=== PATIENT | male | born 1955 | race Caucasian/White ===

== ENCOUNTER 2020-02-21 10:28 | Day surgery (SDC) | payer BC ==
[~2020-02-21] VITALS: Ht 193 cm; Wt 118.4 kg
[~2020-02-21 10:28] MED LIST: ALLO300 PO; ALPR.5 PO; ASCO500 PO; ASPI325 PO; CELE200 PO; EZET10 PO; EZET10-20 PO; FISH OIL 1,2001 EAC7 PO; OLME20 PO; VIT D PO; [UNRECOGNIZED DRUG - OTHER] PO; [UNRECOGNIZED DRUG - REMARK]
[2020-02-21] MEDS ORDERED: ASPI81CH (10:41)
== END 2020-02-21 11:58 | disposition home or self-care (01) ==
LOC: ORSCSDS 10:28
PROVIDERS: Internal Medicine Gastroenterology
PROC: 0DBH8ZX Excision of Cecum, Via Natural or Artificial Opening Endoscopic, Diagnostic (ICD-10-PCS; principal; 2020-02-21 11:45)
PROC: 0DBK8ZX Excision of Ascending Colon, Via Natural or Artificial Opening Endoscopic, Diagnostic (ICD-10-PCS; principal; 2020-02-21 11:45)
DX: Z12.11 Encounter for screening for malignant neoplasm of colon (principal); Z86.010 Personal history of colon polyps; D12.0 Benign neoplasm of cecum; D12.2 Benign neoplasm of ascending colon; K57.30 Diverticulosis of large intestine without perforation or abscess without bleeding; K64.8 Other hemorrhoids; G47.33 Obstructive sleep apnea (adult) (pediatric); I10 Essential (primary) hypertension; Z79.899 Other long term (current) drug therapy; Z79.82 Long term (current) use of aspirin
CPT/HCPCS: 88305; J2704; J7120

== ENCOUNTER 2021-11-24 17:38 | Inpatient (IN) | payer BC ==
[~2021-11-24] VITALS: Ht 193 cm; Wt 44.6 kg
[~2021-11-24 17:38] MED LIST changes: +ASPI81CH; +LIVALO PO; -[UNRECOGNIZED DRUG - OTHER] PO
[2021-11-24 18:24] LABS: BASOPHILS ABSOLUTE AUTO 0.03 K/mm3 (0.00-0.23); BASOPHILS PERCENT AUTO 0 % (0-2); EOSINOPHILS ABSOLUTE AUTO 0.11 K/mm3 (0.00-0.68); EOSINOPHILS PERCENT AUTO 1 % (0-6); Hematocrit 33.7 % (37.0-53.0); Hemoglobin 11.5 g/dL (13.5-17.5); IMMATURE GRAN ABSOLUTE AUTO 0.09 K/mm3 (0.00-0.10); IMMATURE GRAN PERCENT AUTO 1 % (0-1); LYMPHOCYTES ABSOLUTE AUTO 2.35 K/mm3 (0.84-5.20); LYMPHOCYTES PERCENT AUTO 23 % (21-46); MONOCYTES ABSOLUTE AUTO 0.98 K/mm3 (0.16-1.47); MONOCYTES PERCENT AUTO 10 % (4-13); Mean Corpuscular HGB Conc 34.1 g/dL (31.5-36.5); Mean Corpuscular Volume 94 fL (80-100); Mean Platelet Volume 11.3 fL (9.1-12.4); NEUTROPHILS ABSOLUTE AUTO 6.78 K/mm3 (1.96-9.15); NEUTROPHILS PERCENT AUTO 66 % (41-73); Platelet Count 270 K/mm3 (150-400); RDW Coefficient Variation 14.5 % (11.7-14.2); RDW Standard Deviation 50.1 fL (35.1-46.3); Red Blood Cell Count 3.59 M/mm3 (4.30-5.90); White Blood Cell Count 10.34 K/mm3 (4.00-11.30)
[2021-11-24 18:53] LABS: Magnesium, Blood 2.7 mg/dL (1.6-2.4)
[2021-11-24 18:56] LABS: Albumin, Blood 3.8 g/dL (3.4-5.0); Albumin/Globulin Ratio 1.3 (0.8-1.8); Bilirubin, Total 0.9 mg/dL (0.1-1.0); Bun/Creatinine Ratio 27.6 (12.0-20.0); Calcium, Blood 15.9 mg/dL (8.5-10.1); Creatinine, Blood 2.28 mg/dL (0.60-1.20); Globulin, Blood 2.9 g/dL (2.2-4.0); Potassium, Blood 4.7 mmol/L (3.5-5.5); Total Protein, Blood 6.7 g/dL (6.4-8.2)
[2021-11-24 19:15] LABS: Source, Urine Clean Catch
[2021-11-24 19:24] LABS: Appearance, Urine Clear (Clear); Bilirubin, Urine Neg (Neg); Blood, Urine 5+ (Neg); Color, Urine Yellow (P-Yellow); Glucose Qualitative, Urine Neg (Neg); Ketones, Urine Neg (Neg); Leukocyte Esterase, Urine Neg (Neg); Nitrite, Urine Neg (Neg); Protein, Urine 2+ (Neg); Urobilinogen, Urine NORM (Normal)
[2021-11-24 19:30] LABS: Hyaline Casts 0-2 /lpf (0-2)
[2021-11-24 19:31] LABS: Bacteria Few /hpf; Squamous Epithelial Cells Rare /hpf (Few); White Blood Cells, Urine 0-2 /hpf (0-5)
[2021-11-25] MEDS ORDERED: DUTA.5 PO (00:18)
[2021-11-25] MEDS ORDERED: Isosorbide Mono30 MG PO (00:18)
[2021-11-25 02:36] LABS: Hematocrit 29.3 % (37.0-53.0); Hemoglobin 10.1 g/dL (13.5-17.5)
[2021-11-25 02:59] LABS: Albumin, Blood 3.1 g/dL (3.4-5.0); Albumin/Globulin Ratio 1.3 (0.8-1.8); Bilirubin, Total 0.7 mg/dL (0.1-1.0); Bun/Creatinine Ratio 27.6 (12.0-20.0); Calcium, Blood 14.8 mg/dL (8.5-10.1); Creatinine, Blood 2.1 mg/dL (0.60-1.20); Globulin, Blood 2.3 g/dL (2.2-4.0); Potassium, Blood 4.4 mmol/L (3.5-5.5); Total Protein, Blood 5.4 g/dL (6.4-8.2)
--- NOTE | 2021-11-25 03:35 | NUR ---
TROPONIN 1614, CALCIUM 14.8. NOTIFIED, PER MD PT TO HAVE TWO MORE TROPONINS Q6H FROM LAST TROPONIN. PT DENIES CHEST PAIN. ON TELEMETRY ST HR 111 WITH FIRST DEGREE AV BLOCK. WILL CONTINUE TO MONITOR.
[2021-11-25 03:52] LABS: Percent Saturation 14.4 % (20.0-50.0); Thyroid Stimulating Hormone 1.04 uIU/mL (0.360-4.800)
[2021-11-25 05:19] LABS: BASOPHILS ABSOLUTE AUTO 0.04 K/mm3 (0.00-0.23); BASOPHILS PERCENT AUTO 1 % (0-2); EOSINOPHILS PERCENT AUTO 1 % (0-6); Hematocrit 30.3 % (37.0-53.0); Hemoglobin 10.1 g/dL (13.5-17.5); IMMATURE GRAN ABSOLUTE AUTO 0.04 K/mm3 (0.00-0.10); IMMATURE GRAN PERCENT AUTO 1 % (0-1); LYMPHOCYTES ABSOLUTE AUTO 1.43 K/mm3 (0.84-5.20); LYMPHOCYTES PERCENT AUTO 17 % (21-46); MONOCYTES PERCENT AUTO 12 % (4-13); Mean Corpuscular HGB 31.8 pg (26.0-34.0); Mean Corpuscular HGB Conc 33.3 g/dL (31.5-36.5); Mean Corpuscular Volume 95 fL (80-100); Mean Platelet Volume 10.8 fL (9.1-12.4); NEUTROPHILS ABSOLUTE AUTO 5.99 K/mm3 (1.96-9.15); NEUTROPHILS PERCENT AUTO 70 % (41-73); Platelet Count 215 K/mm3 (150-400); RDW Coefficient Variation 14.6 % (11.7-14.2); RDW Standard Deviation 49.7 fL (35.1-46.3); Red Blood Cell Count 3.18 M/mm3 (4.30-5.90)
--- NOTE | 2021-11-25 05:36 | NUR ---
PT A/0X4 VERY PLEASANT AND ISAMAR TO MAKE NEEDS KNOWN. PT STEADY ON FEET AND INDEPENDENT IN ROOM. PT W/O NEW COMPLAINS T/O SHIFT. MEDICATED PER JUN. URINE COLLECTED THIS MORNING AND SENT PER ORDERS. PT ON TELEMETRY ST AVB PT DENIES CHEST PAIN AT THIS TIME. NS INFUSING AT 125 ML/HR.
[2021-11-25 05:59] LABS: Creatinine, Urine Random 29.4 mg/dL (27.00-270.00)
[2021-11-25 06:17] LABS: Eosinophils-Raw #,Urine 0
[2021-11-25 06:19] LABS: White Blood Cells Urine 0-2 /hpf (0-5)
[2021-11-25] MEDS ORDERED: Voltaren100 GM TOP ×2 (12:52→12:55)
--- NOTE | 2021-11-25 18:05 | NUR ---
SUMMARY- PT CONTINUES TO HAVE GEN FATIGUE. TOLERATING SMALL AMOUNTS OF EACH MEAL BUT STATES FOOD TASTES TERRIBLE AND HE HAS NO APPETITE. TOLERATING CLEARS AND HAS IVF NS RUNNING. PT HAD RENAL U.S. TODAY. HAD CHEST/ABD CT. DR WILLOUGHBY CONSULTED. PLAN FOR BOWEL PREP STARTING 0700 11/26 FOR COLONOSCOPY. PT IS ON CLEAR DIET. PAIN FROM ARTHRITIS/BURSITIS CONTROLLED WITH ONE VICODIN. PT DECLINES TO TAKE PM LOSARTIN, EQUIVELANT OF HIS HOME BENICAR BECAUSE THEY DON'T FEEL COMFORATBLE WITH THAT MED. PT GETS UP TO CHAIR THROUOUT THE DAY. FAMILY IN ROOM MOST OF THE DAY. VERY ATTENTIVE TO THE PATIENE. WILL REPORT TO NIGHT RN.
--- NOTE | 2021-11-26 04:47 | NUR ---
SHIFT SUMMARY ADMITTED FOR HYPERCALCEMIA. FULL CODE. TELEMETRY: 1ST DEG BLOCK, TACHY @ 107 BPM. XANAX GIVEN. NS INFUSING ORDERED. CLEAR LIQUID DIET. PLAN FOR UPPER AND LOWER SCOPE TODAY. WILL BEGIN GOLYTELY REGIMEN THIS AM ORDERED. HE IS A&O X4, COOPERATIVE WITH CARE. DR LEWIS IS GI CONSULT.
[2021-11-26 07:48] LABS: Hematocrit 31.6 % (37.0-53.0); Hemoglobin 10.7 g/dL (13.5-17.5)
[2021-11-26 08:13] LABS: Bun/Creatinine Ratio 23.7 (12.0-20.0); Creatinine, Blood 1.56 mg/dL (0.60-1.20); Potassium, Blood 4.5 mmol/L (3.5-5.5)
[2021-11-26 08:14] LABS: Calcium, Blood 12.4 mg/dL (8.5-10.1)
--- NOTE | 2021-11-26 16:17 | NUR ---
THE PATIENT WAS BROUGHT TO DAY SURGERY FOR HIS PROCEDURE
--- NOTE | 2021-11-26 16:56 | NUR ---
11/26/21 1656 Karl Price HISTORY, CHART, MEDICATIONS AND ALLERGIES REVIEWED BEFORE START OF PROCEDURE. PATIENT CONFIRMS NPO STATUS AND AGREES WITH SCHEDULED PROCEDURE. 3-LEAD EKG REVIEWED WITH PHYSICIAN PRIOR TO START OF PROCEDURE. MONITOR INTACT WITH CONTINUOUS PULSE OXIMETRY,CAPNOGRAPHY, 3-LEAD EKG, INTERMITTENT BP. SUPPLEMENTAL O2 TO BE TITRATED THROUGHOUT PROCEDURE TO MAINTAIN O2 SATURATION ABOVE 90%. PATIENT DETERMINED TO BE ASA APPROPRIATE FOR PROPOFOL SEDATION PRIOR TO START OF PROCEDURE BY DR. LEWIS.
--- NOTE | 2021-11-26 20:21 | NUR ---
1600- PT OFF TO ENDO/COLONOSCOPY PROCEDURE WITH EDIN PATEL. SL. PT'S STOOL RUNNING CLEAR WITH MANE SEDIMENT.
--- NOTE | 2021-11-26 20:21 | NUR ---
0- RETURNED FROM ENDO, AWAKE AND ALERT. TOLERATING SIPS OF CLEARS. STARTED TELE AND IVF BACK. DR WILLOUGHBY CAME TO BEDSIDE AND DISCUSSED POSSIBILITY OF BEING ABLE TO DO COLONOSCOPY, PREP WAS NOT COMPLETE AND UNABLE TO PERFORM TODAY. PENDING DRAGLINE OPERATOR AVAIL FOR PROCEDURE TOMORROW.
--- NOTE | 2021-11-26 20:23 | NUR ---
SUMM- PT TOLERATING CLEARS TODAY. PREPPED FOR ENDO/COLONOSCOPY. UNABLE TO DO COLON BOWEL PREP INCOMPLETE. MAY PERFORM TOMORROW. PT'S SHOULDER ARTHRITIS PAIN CONTROLLED WITH VICODIN 1 APPPROX Q4-6. AND DAUGHTER VERY INVOLVED IN CARE AND VERY FRUSTRATED TO NOT HAVE ANY ANSWERS TO WHY PT LOSING WEIGHT AND DELCLINING. REPORT TO MAGDI JESUS.
--- NOTE | 2021-11-27 04:16 | NUR ---
SHIFT SUMMARY ADMITTED FOR HYPERCALCEMIA. FULL CODE. DR. LEWIS IS GI CONSULT. DR. RAGSDALE IS CARDIOLOGY CONSULT. HOPEFUL FOR COLONOSCOPY WHEN STAFFING PERMITS. TELEMETRY SHOWS TACHYCARDIA INCREASING WITH AMBULATION. 1ST DEG AV BLOCK @ 108 BPM ON AVERAGE. XANAX PRN GIVEN THIS SHIFT. PT IS ON RA, A&O X4. FULL LIQUID DIET UNTIL BREAKFAST THIS MORNING, THEN CLEAR LIQUID DIET.
[2021-11-27 09:19] LABS: Albumin, Blood 3.1 g/dL (3.4-5.0); Anion Gap 10 mmol/L (6-16); Blood Urea Nitrogen 26 mg/dL (8-24); Bun/Creatinine Ratio 19.4 (12.0-20.0); CO2, Blood 20 mmol/L (21-32); Calcium, Blood 11.5 mg/dL (8.5-10.1); Chloride, Blood 109 mmol/L (98-108); Creatinine, Blood 1.34 mg/dL (0.60-1.20); Glomerular Filtration Rate 58 (60-); Glucose, Blood 111 mg/dL (70-99); Phosphorus, Blood 1.9 mg/dL (2.5-4.9); Sodium, Blood 139 mmol/L (136-145)
[2021-11-27 15:07] LABS: A/G RATIO 1.7 (0.7-1.7); ALPHA-1-GLOBULIN 0.2 g/dL (0.0-0.4); ALPHA-2-GLOBULIN 0.7 g/dL (0.4-1.0); BETA GLOBULIN 0.7 g/dL (0.7-1.3); GAMMA GLOBULIN 0.3 g/dL (0.4-1.8); GLOBULIN, TOTAL 1.8 g/dL (2.2-3.9); M-SPIKE Not Observed g/dL (Not Observed); PROTEIN, TOTAL, SERUM 4.8 g/dL (6.0-8.5)
--- NOTE | 2021-11-28 04:43 | NUR ---
SHIFT SUMMARY 66 YR M ADMITTED ON 11/24/21 FOR HYPERCALCEMIA. FULL CODE. NO ACUTE CHANGES THIS SHIFT. PT HAS BEEN ON CLEAR LIQUIDS AND IS SCHEDULED FOR A COLONOSCOPY TODAY AT APPROX 1500. NO PRN MEDS REQUESTED FOR THIS SHIFT.
[2021-11-28 05:27] LABS: BASOPHILS ABSOLUTE AUTO 0.01 K/mm3 (0.00-0.23); BASOPHILS PERCENT AUTO 0 % (0-2); EOSINOPHILS ABSOLUTE AUTO 0.16 K/mm3 (0.00-0.68); EOSINOPHILS PERCENT AUTO 2 % (0-6); Hematocrit 27.5 % (37.0-53.0); Hemoglobin 9.4 g/dL (13.5-17.5); IMMATURE GRAN ABSOLUTE AUTO 0.04 K/mm3 (0.00-0.10); IMMATURE GRAN PERCENT AUTO 1 % (0-1); LYMPHOCYTES ABSOLUTE AUTO 1.49 K/mm3 (0.84-5.20); LYMPHOCYTES PERCENT AUTO 19 % (21-46); MONOCYTES ABSOLUTE AUTO 0.76 K/mm3 (0.16-1.47); MONOCYTES PERCENT AUTO 10 % (4-13); Mean Corpuscular HGB 32.4 pg (26.0-34.0); Mean Corpuscular HGB Conc 34.2 g/dL (31.5-36.5); Mean Corpuscular Volume 95 fL (80-100); Mean Platelet Volume 10.9 fL (9.1-12.4); NEUTROPHILS ABSOLUTE AUTO 5.42 K/mm3 (1.96-9.15); NEUTROPHILS PERCENT AUTO 69 % (41-73); Platelet Count 189 K/mm3 (150-400); RDW Coefficient Variation 15.1 % (11.7-14.2); RDW Standard Deviation 52.5 fL (35.1-46.3); White Blood Cell Count 7.88 K/mm3 (4.00-11.30)
[2021-11-28 06:02] LABS: Albumin, Blood 2.7 g/dL (3.4-5.0); Anion Gap 9 mmol/L (6-16); Blood Urea Nitrogen 20 mg/dL (8-24); Bun/Creatinine Ratio 16.7 (12.0-20.0); CO2, Blood 18 mmol/L (21-32); Calcium, Blood 10.7 mg/dL (8.5-10.1); Chloride, Blood 112 mmol/L (98-108); Glomerular Filtration Rate 66 (60-); Glucose, Blood 98 mg/dL (70-99); Magnesium, Blood 1.8 mg/dL (1.6-2.4); Phosphorus, Blood 1.7 mg/dL (2.5-4.9); Potassium, Blood 3.4 mmol/L (3.5-5.5); Sodium, Blood 139 mmol/L (136-145)
--- NOTE | 2021-11-28 14:09 | NUR ---
11/28/21 1409 Nadja Alas HISTORY, CHART, MEDICATIONS AND ALLERGIES REVIEWED BEFORE START OF PROCEDURE. PATIENT CONFIRMS NPO STATUS AND AGREES WITH SCHEDULED PROCEDURE. 3-LEAD EKG REVIEWED WITH PHYSICIAN PRIOR TO START OF PROCEDURE. MONITOR INTACT WITH CONTINUOUS PULSE OXIMETRY,CAPNOGRAPHY, 3-LEAD EKG, INTERMITTENT BP. SUPPLEMENTAL O2 TO BE TITRATED THROUGHOUT PROCEDURE TO MAINTAIN O2 SATURATION ABOVE 90%. PATIENT DETERMINED TO BE ASA APPROPRIATE FOR PROPOFOL SEDATION PRIOR TO START OF PROCEDURE BY DR. LEWIS
--- NOTE | 2021-11-28 17:38 | NUR ---
AOX4, INDEPENDENT, CAN MAKE NEEDS KNOWN, COOPERATIVE WITH MEDICATIONS AND CARE. PT WAS ON CLEAR LIQUID DIET AND COLONOSCOPY TODAY; PT NOW ON CARDIAC DIET AND TOLERATING IT WELL. PRN PAIN MED GIVEN AFTER PROCEDURE FOR SHOULDER PAIN 5/10, GOOD RELIEF WITH DOSE. PT'S HAS BEEN AT BESIDE MOST OF THE SHIFT. NO ACUTE CHANGES. CALL-LIGHT WITHIN REACH; BED IN LOWEST POSITION.
[2021-11-29 08:26] LABS: Albumin, Blood 2.9 g/dL (3.4-5.0); Anion Gap 10 mmol/L (6-16); Blood Urea Nitrogen 16 mg/dL (8-24); Bun/Creatinine Ratio 13.8 (12.0-20.0); CO2, Blood 18 mmol/L (21-32); Calcium, Blood 10.2 mg/dL (8.5-10.1); Chloride, Blood 113 mmol/L (98-108); Creatinine, Blood 1.16 mg/dL (0.60-1.20); Glomerular Filtration Rate 69 (60-); Glucose, Blood 92 mg/dL (70-99); Phosphorus, Blood 1.6 mg/dL (2.5-4.9); Potassium, Blood 3.6 mmol/L (3.5-5.5); Sodium, Blood 141 mmol/L (136-145)
[2021-11-29] MEDS ORDERED: DOCUZEN 8.6-501 EACH PO (13:32)
== END 2021-11-29 14:12 | disposition home or self-care (01) | DRG 683 ==
LOC: ER 17:38 → MEDS 23:10
PROVIDERS: Family Medicine; Internal Medicine; Internal Medicine Gastroenterology; Physician Assistant; ADMIT Internal Medicine
PROC: 0DB68ZX Excision of Stomach, Via Natural or Artificial Opening Endoscopic, Diagnostic (ICD-10-PCS; 2021-11-26)
PROC: 0DBM8ZZ Excision of Descending Colon, Via Natural or Artificial Opening Endoscopic (ICD-10-PCS; 2021-11-26)
PROC: 0DBM8ZX Excision of Descending Colon, Via Natural or Artificial Opening Endoscopic, Diagnostic (ICD-10-PCS; principal; 2021-11-26 14:00)
PROC: 0DB98ZX Excision of Duodenum, Via Natural or Artificial Opening Endoscopic, Diagnostic (ICD-10-PCS; 2021-11-26 14:00)
DX: N17.9 Acute kidney failure, unspecified (principal); E87.1 Hypo-osmolality and hyponatremia; E83.52 Hypercalcemia; I10 Essential (primary) hypertension; E78.00 Pure hypercholesterolemia, unspecified; I48.91 Unspecified atrial fibrillation; G47.33 Obstructive sleep apnea (adult) (pediatric); E78.5 Hyperlipidemia, unspecified; R01.1 Cardiac murmur, unspecified; R63.4 Abnormal weight loss; I35.1 Nonrheumatic aortic (valve) insufficiency; I25.10 Atherosclerotic heart disease of native coronary artery without angina pectoris; D64.9 Anemia, unspecified; E83.41 Hypermagnesemia; R31.9 Hematuria, unspecified; T45.2X5A Adverse effect of vitamins, initial encounter; R79.89 Other specified abnormal findings of blood chemistry; M10.9 Gout, unspecified; Z99.89 Dependence on other enabling machines and devices; Z86.16 Personal history of COVID-19; Z86.010 Personal history of colon polyps; Z98.890 Other specified postprocedural states; Z87.19 Personal history of other diseases of the digestive system; Z88.0 Allergy status to penicillin; Z79.82 Long term (current) use of aspirin; Z79.899 Other long term (current) drug therapy
CPT/HCPCS: 36415; 71250; 74176; 76770; 80048; 80053; 80069; 81001; 82310; 82330; 82397; 82570; 82607; 82728; 82746; 83540; 83550; 83605; 83735; 83880; 83970; 84165; 84300; 84443; 84484; 84540; 84590; 85014; 85018; 85025; 87205; 88305; 88342; 93005; 93010; 93306; 99285-25; A9270; J0630; J1650; J2405; J2704; J3489; J7030; J7060; J7120

== ENCOUNTER 2022-01-07 17:06 | Inpatient (IN) | payer BC ==
[~2022-01-07] VITALS: Ht 193 cm; Wt 86.2 kg
[~2022-01-07 17:06] MED LIST changes: +DOCUZEN 8.6-501 EACH PO; +DUTA.5 PO; +Isosorbide Mono30 MG PO; +Voltaren100 GM TOP
[2022-01-07 18:28] LABS: BASOPHILS ABSOLUTE AUTO 0.03 K/mm3 (0.00-0.23); BASOPHILS PERCENT AUTO 0 % (0-2); EOSINOPHILS ABSOLUTE AUTO 0.08 K/mm3 (0.00-0.68); EOSINOPHILS PERCENT AUTO 1 % (0-6); Hematocrit 28.5 % (37.0-53.0); Hemoglobin 9.5 g/dL (13.5-17.5); IMMATURE GRAN ABSOLUTE AUTO 0.11 K/mm3 (0.00-0.10); IMMATURE GRAN PERCENT AUTO 1 % (0-1); LYMPHOCYTES ABSOLUTE AUTO 1.56 K/mm3 (0.84-5.20); LYMPHOCYTES PERCENT AUTO 14 % (21-46); MONOCYTES ABSOLUTE AUTO 1.12 K/mm3 (0.16-1.47); MONOCYTES PERCENT AUTO 10 % (4-13); Mean Corpuscular HGB 32.4 pg (26.0-34.0); Mean Corpuscular HGB Conc 33.3 g/dL (31.5-36.5); Mean Corpuscular Volume 97 fL (80-100); Mean Platelet Volume 11.3 fL (9.1-12.4); NEUTROPHILS ABSOLUTE AUTO 8.04 K/mm3 (1.96-9.15); NEUTROPHILS PERCENT AUTO 74 % (41-73); Platelet Count 275 K/mm3 (150-400); RDW Coefficient Variation 15.3 % (11.7-14.2); RDW Standard Deviation 53.7 fL (35.1-46.3); Red Blood Cell Count 2.93 M/mm3 (4.30-5.90); White Blood Cell Count 10.94 K/mm3 (4.00-11.30)
[2022-01-07 18:48] LABS: Magnesium, Blood 2.8 mg/dL (1.6-2.4)
[2022-01-07 19:01] LABS: Alanine Aminotransfer (ALT/SGP 21 U/L (12-78); Albumin/Globulin Ratio 1.2 (0.8-1.8); Alk Phos 110 U/L (50-136); Anion Gap 7 mmol/L (6-16); Aspartate Aminotrans (AST/SGOT 64 U/L (12-37); Bilirubin, Total 0.7 mg/dL (0.1-1.0); Blood Urea Nitrogen 55 mg/dL (8-24); Bun/Creatinine Ratio 21.2 (12.0-20.0); CO2, Blood 24 mmol/L (21-32); Calcium, Blood 15.7 mg/dL (8.5-10.1); Chloride, Blood 104 mmol/L (98-108); Globulin, Blood 2.6 g/dL (2.2-4.0); Glomerular Filtration Rate 26 (60-); Glucose, Blood 142 mg/dL (70-99); Phosphorus, Blood 3.2 mg/dL (2.5-4.9); Potassium, Blood 4.7 mmol/L (3.5-5.5); Sodium, Blood 135 mmol/L (136-145); Total Protein, Blood 5.6 g/dL (6.4-8.2)
[2022-01-07 21:32] LABS: CPK Creatine Kinase 310 U/L (39-308); Prostate Specific Antigen 0.774 ng/mL (0.000-4.000)
[2022-01-07 22:09] LABS: Creatine Kinase MB 4.3 ng/mL (0.0-3.6); Creatine Kinase MB Index 1.4 (0.0-4.0)
--- NOTE | 2022-01-07 22:48 | NUR ---
PT ARRIVED TO MEDICAL FLOOR BY AT 2240. [id number] TO BED.
--- NOTE | 2022-01-08 04:21 | NUR ---
A&Ox4. PLEASANT AND COOPERATIVE WITH PAIN. VSS. TELE @ 2321: SINUS TAC @ 112bpm & 1ST-DEGREE HEART BLOCK. SBA FOR AMBULATION D/T WEAK GAIT. MEICATED x1 D/T GENERALIZED BONE PAIN SECONDARY TO HYPERCALCEMIA. CONSULT WITH DR SAAVEDRA THIS AM. , ALEJA, VERY INVOLVED IN CARE AND HAS BEEN INFORMED WHEN DR SAAVEDRA WILL ROUND. PT BM THIS EVENING. NS 200ml/hr RUNNING RT AC. PERSONAL CPAP @ BEDSIDE & CONTINUOUS BI-0x PER RT. WILL REPORT TO ONCOMING RN.
[2022-01-08 06:01] LABS: Hemoglobin 8.8 g/dL (13.5-17.5); Mean Corpuscular HGB Conc 32.6 g/dL (31.5-36.5); Mean Corpuscular Volume 98 fL (80-100); Mean Platelet Volume 11.8 fL (9.1-12.4); Platelet Count 251 K/mm3 (150-400); RDW Coefficient Variation 15.1 % (11.7-14.2); RDW Standard Deviation 53.9 fL (35.1-46.3); Red Blood Cell Count 2.75 M/mm3 (4.30-5.90); White Blood Cell Count 11.78 K/mm3 (4.00-11.30)
[2022-01-08 06:18] LABS: Magnesium, Blood 2.3 mg/dL (1.6-2.4)
[2022-01-08 06:32] LABS: Albumin, Blood 2.8 g/dL (3.4-5.0); Albumin/Globulin Ratio 1.2 (0.8-1.8); Bilirubin, Total 0.8 mg/dL (0.1-1.0); Bun/Creatinine Ratio 21.5 (12.0-20.0); Calcium, Blood 14.8 mg/dL (8.5-10.1); Creatinine, Blood 2.42 mg/dL (0.60-1.20); Globulin, Blood 2.4 g/dL (2.2-4.0); Potassium, Blood 4.6 mmol/L (3.5-5.5); Total Protein, Blood 5.2 g/dL (6.4-8.2)
--- NOTE | 2022-01-08 19:52 | NUR ---
SHIFT SUMMARY MR CRUZ IS ALERT, ORIENTATED X4. VERY SUPPORTIVE AND DAUGHTER AT BEDSIDE FOR MOST OF THE DAY TODAY. PT C/O JOINT ACHES TWICE THIS SHIFT WHICH OXY HELPED. RANDOM URINE SPEC SENT THIS AM AND 24 HOUR URINE STATED AT 1030AM. IV LASIX GIVEN THIS AM WITH GOOD UOP. NUCLEAR MED PARATHYROID EXAM COMPLETED TODAY. BLADDER SCAN DONE AT 136CC. PULSE OX IN THE 90S ON CONTINUOUS PULSE OX ON ROOM AIR. PT DID AMBULATE IN TO THE BATHROOM, STANDBY ASSISTANCE, HE IS WEAK AND USES THE RAILINGS TO HOLD ON TO. TELE SR WITH BBB, NO CALLS FROM [employer] TODAY. IVF CONTINUE, WERE REDUCED TO 100CC/HR. PT AND FAMILY REFUSED ARANESP THIS EVENING AFTER CONCERNS WHEN READING INFORMATION SHEET THAT ACCOMPNIES MEDICATION. DR LAGUERRE INFORMED THAT ARANESP WAS NOT GIVEN. DR SAAVEDRA CALLED THIS EVENING AND SAID THAT HE IS WAITING ON LAB RESULTS BEFORE COMING IN TO SEE MR CRUZ. FAMILY AND PT WERE NOTIFIED OF THIS. STRESSED TO DR SAAVEDRA THAT FAMILY DO WANT TO TALK TO HIM WHEN HE COMES TO SEE MR CRUZ. BED LOW, CALL LIGHT IN REACH.
[2022-01-09 05:22] LABS: BASOPHILS ABSOLUTE AUTO 0.03 K/mm3 (0.00-0.23); BASOPHILS PERCENT AUTO 0 % (0-2); EOSINOPHILS PERCENT AUTO 0 % (0-6); Hematocrit 27.1 % (37.0-53.0); Hemoglobin 8.9 g/dL (13.5-17.5); IMMATURE GRAN ABSOLUTE AUTO 0.19 K/mm3 (0.00-0.10); IMMATURE GRAN PERCENT AUTO 1 % (0-1); LYMPHOCYTES ABSOLUTE AUTO 2.19 K/mm3 (0.84-5.20); LYMPHOCYTES PERCENT AUTO 11 % (21-46); MONOCYTES ABSOLUTE AUTO 1.58 K/mm3 (0.16-1.47); MONOCYTES PERCENT AUTO 8 % (4-13); Mean Corpuscular HGB 31.8 pg (26.0-34.0); Mean Corpuscular HGB Conc 32.8 g/dL (31.5-36.5); Mean Corpuscular Volume 97 fL (80-100); Mean Platelet Volume 11.1 fL (9.1-12.4); NEUTROPHILS ABSOLUTE AUTO 16.93 K/mm3 (1.96-9.15); NEUTROPHILS PERCENT AUTO 81 % (41-73); Platelet Count 299 K/mm3 (150-400); RDW Coefficient Variation 15.1 % (11.7-14.2); RDW Standard Deviation 53.5 fL (35.1-46.3); White Blood Cell Count 20.92 K/mm3 (4.00-11.30)
[2022-01-09 05:55] LABS: Magnesium, Blood 2.2 mg/dL (1.6-2.4)
--- NOTE | 2022-01-09 05:57 | NUR ---
PATIENT PLEASANT AND COOROPERATIVE, PATIENT INCREASINGLY CONFUSED OVERNIGHT, PLACED ON BED ALARM, CONTINUING 24 HOUR URINE COLLECTION UNTIL 1030, PRN MEDICATION FOR PAIN, IVF RUNNING ORDERED TO IV IN RAC, IS POSITIONAL, PATIENT ON TELE WITH SINUS TACH
[2022-01-09 06:00] LABS: Albumin, Blood 3.1 g/dL (3.4-5.0); Anion Gap 10 mmol/L (6-16); Blood Urea Nitrogen 52 mg/dL (8-24); Bun/Creatinine Ratio 23.9 (12.0-20.0); CO2, Blood 21 mmol/L (21-32); Calcium, Blood 13.3 mg/dL (8.5-10.1); Chloride, Blood 106 mmol/L (98-108); Creatinine, Blood 2.18 mg/dL (0.60-1.20); Glomerular Filtration Rate 32 (60-); Glucose, Blood 120 mg/dL (70-99); Phosphorus, Blood 3.1 mg/dL (2.5-4.9); Potassium, Blood 4.1 mmol/L (3.5-5.5); Sodium, Blood 137 mmol/L (136-145)
--- NOTE | 2022-01-09 10:31 | NUR ---
RN NOTE MR CRUZ HAS BEEN ORIENTATED TO QUESTIONS THIS MORNING. HE WAS A LITTLE VAGUE AT FIRST ABOUT SOME OF HIS ANSWERS, BUT SOON BECAME CLEAR AND SURE OF HIS ANSWERS. HE IS [place] AND SAID SOMETIMES HE GETS CONFUSED WHEN HE CAN'T HEAR WELL. PERRL, NO FACIAL DROOP, NO ARM DROOP, EQUAL HORIZONTAL DRILL OPERATOR. TACHYCARDIA ON MONITOR THIS MORNING. SEEN BY DR ECHEVERRIA. IVF DECREASED TO 75CC/HR, IV LASIX 40MG AND NEW PARAMTER [facility] VERBAL ORDERS FROM DR ECHEVERRIA. DR ECHEVERRIA IS AWARE THAT PT WAS CONFUSED OVERNIGHT, THAT PT AND FAMILY HAVE CONCERNS ABOUT ARANASP, AND SAID HE IS HAPPY TO DISCUSS THEIR CONCERNS WITH THEM. 24 HOUR URINE COLLECTION COMPLETED AT 1030. PT RESTING THIS MORNING WITH CPAP ON. CONTINUOUS PULSE OX ON, SATS IN THE 90S.
[2022-01-09 12:03] LABS: Protein, Urine Quantitative 52.5 mg/dL (0.0-11.9)
--- NOTE | 2022-01-09 12:37 | NUR ---
RN NOTE PAMELA, PT'S AT BEDSIDE. DR LAGUERRE DISCUSSED PLAN OF CARE WITH PT AND HIS . [facility] ORDER FROM DR LAGUERRE. WHEN I TOLD PAMELA THAT MR CRUZ WAS CONFUSED AT TIMES OVERNIGHT SHE SAID THAT HER HAS BEEN A LITTLE VAGUE AND CONFUSED AT HOME ON AND OFF RECENTLY, SO IT DIDN'T SOUND UNUSUAL TO HER.
--- NOTE | 2022-01-09 15:52 | NUR ---
RN NOTE CALL FROM TELE, PT HR UP TO HIGH 140S. PT GETTING UP OUT OF BED, AWOKE FROM A SOUND SLEEP AND NEEDED TO URINATE URGENTLY. ASSISTED WITH STANDING AND URINATING, HR DOWN TO THE ONE-TEENS WHEN RESTING BACK IN BED. NO CHEST PAIN, DENIES ANY PAIN AT ALL AT THIS POINT. BED ALARM ON, CALL LIGHT IN REACH.
--- NOTE | 2022-01-09 19:38 | NUR ---
MARCI SUMMARY PLS SEE PRIOR NOTES. MR ANTHONY HAS DENIED PAIN TODAY. TELE ST AROUND 106 AT REST, INCREASED UP TO 140S WITH EXERTION EARLIER, BACK DOEN AFTER HE SETTLED BACK INTO BED. IVF CONTINUE AT 75CC/HR. CPAP USED FOR NAPS. CONT PULSE OX IN THE 90S ON ROOM AIR. [place], ORIENTATED WHEN AWAKE, BUT FORGETFUL WHEN HE AWOKE FORM A DEEP SLEEP, GETTING OUT OF BED BY HIMSELF. BED ALARM ON FOR PT SAFETY AND EXPLAINED TO PT AND PAMELA. 24 HR URINE COMPLETED 1030HRS, BED LOW, CALL LIGHT IN REACH.
[2022-01-10 05:07] LABS: BASOPHILS ABSOLUTE AUTO 0.01 K/mm3 (0.00-0.23); BASOPHILS PERCENT AUTO 0 % (0-2); EOSINOPHILS PERCENT AUTO 0 % (0-6); Hematocrit 26.4 % (37.0-53.0); Hemoglobin 8.5 g/dL (13.5-17.5); IMMATURE GRAN ABSOLUTE AUTO 0.07 K/mm3 (0.00-0.10); IMMATURE GRAN PERCENT AUTO 0 % (0-1); LYMPHOCYTES ABSOLUTE AUTO 1.77 K/mm3 (0.84-5.20); LYMPHOCYTES PERCENT AUTO 11 % (21-46); MONOCYTES ABSOLUTE AUTO 1.22 K/mm3 (0.16-1.47); MONOCYTES PERCENT AUTO 8 % (4-13); Mean Corpuscular HGB 31.8 pg (26.0-34.0); Mean Corpuscular HGB Conc 32.2 g/dL (31.5-36.5); Mean Corpuscular Volume 99 fL (80-100); Mean Platelet Volume 11.2 fL (9.1-12.4); NEUTROPHILS ABSOLUTE AUTO 12.68 K/mm3 (1.96-9.15); NEUTROPHILS PERCENT AUTO 81 % (41-73); Platelet Count 237 K/mm3 (150-400); RDW Coefficient Variation 15.5 % (11.7-14.2); RDW Standard Deviation 55.7 fL (35.1-46.3); Red Blood Cell Count 2.67 M/mm3 (4.30-5.90); White Blood Cell Count 15.75 K/mm3 (4.00-11.30)
--- NOTE | 2022-01-10 05:50 | NUR ---
CLINICAL NURSING DIRECTOR SUMMARY PT RESTING ON CPAP THROUGHOUT THE NIGHT. PT SLIGHTLY UNSTEADY WHEN STANDING AT BS TO USE THE URINAL. ALERT AND ORIENTED BUT WAKES UP SLIGHTLY CONFUSED ABOUT THE SITUATION, EASILY REORIENTED. NO ACUTE EVENTS THIS SHIFT.
[2022-01-10 05:54] LABS: Albumin, Blood 2.8 g/dL (3.4-5.0); Anion Gap 10 mmol/L (6-16); Blood Urea Nitrogen 53 mg/dL (8-24); Bun/Creatinine Ratio 27.9 (12.0-20.0); CO2, Blood 19 mmol/L (21-32); Calcium, Blood 11.8 mg/dL (8.5-10.1); Chloride, Blood 109 mmol/L (98-108); Glomerular Filtration Rate 38 (60-); Glucose, Blood 97 mg/dL (70-99); Magnesium, Blood 2.1 mg/dL (1.6-2.4); Phosphorus, Blood 2.8 mg/dL (2.5-4.9); Potassium, Blood 3.6 mmol/L (3.5-5.5); Sodium, Blood 138 mmol/L (136-145)
--- NOTE | 2022-01-10 10:34 | NUR ---
RN NOTE DR ECHEVERRIA WAS IN PT ROOM THIS AM. GAVE ME VERBAL ORDER FOR 40MG LASIX IV X1 AND DECREASE IVF TO 50CC/HR. READ BACK DONE AND [facility] PLAN FOR DISCHARGE HOME TODAY. I CALLED DR ECHEVERRIA AND HE ORDERED POTASSIUM 10mEq QOD AND LASIX 40MG QOD FOR DISCHARGE. READ BACK DONE AND THESE WERE RELATED TO DR BARCENAS TO PUT ON DISCHARGE PAPERWORK. PT ALERT, OX4 TODAY, SEEMS CLEARER IN HIS SPEACH AND MANOR THIS MORNING. NO C/O PAIN. BED LOW, CALL LIGHT IN REACH. BED ALARM ON.
[2022-01-10] MEDS ORDERED: CINA30 PO (10:51)
[2022-01-10] MEDS ORDERED: SODBIC650 PO (10:51)
[2022-01-10] MEDS ORDERED: FURO40 PO (10:52)
[2022-01-10] MEDS ORDERED: POTA10T PO (10:52)
--- NOTE | 2022-01-10 12:31 | NUR ---
DISCHARGE NOTE DISCHARGED HOME WITH HIS VIA WHEELCHAIR AT 12 NOON. PIV X 2 REMOVED. TELE REMOVED. PT AND Jimmie VERBALISED UNDERTANDING OF DISCHARGE INSTRUCTIONS AND ALL QUESTIONS ANSWERED. WRITTEN AND VERBAL DC INSTRUCTIONS GIVEN.
[2022-01-11 15:08] LABS: IMMUNOFIXATION RESULT, SERUM Comment: (.); IMMUNOGLOBULIN A, QN, SERUM 15 mg/dL (61-437); IMMUNOGLOBULIN G, QN, SERUM 266 mg/dL (603-1613); IMMUNOGLOBULIN M, QN, SERUM <5 mg/dL (20-172)
[2022-01-13 13:08] LABS: ANTIMYELOPEROXIDASE (MPO) ABS <0.2 units (0.0-0.9); ANTIPROTEINASE 3 (PR-3) ABS <0.2 units (0.0-0.9); ATYPICAL PANCA <1:20 titer (Neg:<1:20); CYTOPLASMIC (C-ANCA) <1:20 titer (Neg:<1:20); PERINUCLEAR (P-ANCA) <1:20 titer (Neg:<1:20)
[2022-01-14 12:10] LABS: M-SPIKE, % Comment: % (Not Observed); PROTEIN,TOTAL,URINE 21.4 mg/dL (Not Estab.)
[2022-01-15 15:11] LABS: ALDOS/RENIN RATIO 0.1 (0.0-30.0); ALDOSTERONE 1.2 ng/dL (0.0-30.0)
== END 2022-01-10 12:09 | disposition home or self-care (01) | DRG 683 ==
LOC: ER 17:06 → MEDS 20:54
PROVIDERS: Internal Medicine; Internal Medicine Nephrology; Nurse Practitioner Acute Care; Physician Assistant; ADMIT Internal Medicine
DX: N17.9 Acute kidney failure, unspecified (principal); C90.00 Multiple myeloma not having achieved remission; E87.1 Hypo-osmolality and hyponatremia; E87.2 Acidosis; E83.52 Hypercalcemia; M19.90 Unspecified osteoarthritis, unspecified site; M10.9 Gout, unspecified; I48.91 Unspecified atrial fibrillation; Z98.890 Other specified postprocedural states; N18.30 Chronic kidney disease, stage 3 unspecified; I12.9 Hypertensive chronic kidney disease with stage 1 through stage 4 chronic kidney disease, or unspecified chronic kidney disease; D63.1 Anemia in chronic kidney disease; G89.29 Other chronic pain
CPT/HCPCS: 36415; 76770; 78070; 80053; 80069; 81050; 82088; 82164; 82550; 82553; 83516; 83520; 83735; 83970; 84100; 84153; 84156; 84166; 84244; 85025; 85027; 86037; 86038; 86334; 86335; 93005; 93010; 94660; 94762; 96374; 99284-25; A9270; A9500; J0630; J1650; J1720; J1940; J3489; J7030

== ENCOUNTER → 2022-02-11 | Outpatient (CLI) | payer BC ==
[~2022-02-11] MED LIST changes: +CINA30 PO; +FURO40 PO; +POTA10T PO; +SODBIC650 PO
[2022-02-11 13:12] LABS: BASOPHILS ABSOLUTE AUTO 0.02 K/mm3 (0.00-0.23); BASOPHILS PERCENT AUTO 1 % (0-2); EOSINOPHILS PERCENT AUTO 0 % (0-6); Hematocrit 30.4 % (37.0-53.0); Hemoglobin 9.8 g/dL (13.5-17.5); IMMATURE GRAN ABSOLUTE AUTO 0.02 K/mm3 (0.00-0.10); IMMATURE GRAN PERCENT AUTO 1 % (0-1); LYMPHOCYTES ABSOLUTE AUTO 0.51 K/mm3 (0.84-5.20); LYMPHOCYTES PERCENT AUTO 15 % (21-46); MONOCYTES ABSOLUTE AUTO 0.19 K/mm3 (0.16-1.47); MONOCYTES PERCENT AUTO 6 % (4-13); Mean Corpuscular HGB 31.6 pg (26.0-34.0); Mean Corpuscular HGB Conc 32.2 g/dL (31.5-36.5); Mean Corpuscular Volume 98 fL (80-100); Mean Platelet Volume 12.5 fL (9.1-12.4); NEUTROPHILS ABSOLUTE AUTO 2.69 K/mm3 (1.96-9.15); NEUTROPHILS PERCENT AUTO 78 % (41-73); Platelet Count 195 K/mm3 (150-400); RDW Coefficient Variation 17.1 % (11.7-14.2); RDW Standard Deviation 61.1 fL (35.1-46.3); White Blood Cell Count 3.43 K/mm3 (4.00-11.30)
[2022-02-11 13:26] LABS: Bun/Creatinine Ratio 22.6 (12.0-20.0); Calcium, Blood 10.8 mg/dL (8.5-10.1); Creatinine, Blood 1.55 mg/dL (0.60-1.20); Potassium, Blood 3.6 mmol/L (3.5-5.5)
== END | disposition home or self-care (01) ==
LOC: LAB 12:00 → LAB SHORT 12:00
PROVIDERS: Internal Medicine Hematology & Oncology
DX: C90.00 Multiple myeloma not having achieved remission (principal)
CPT/HCPCS: 80048; 85025

== ENCOUNTER → 2022-02-15 | Outpatient (CLI) | payer BC ==
[2022-02-15 15:07] LABS: Protein, Urine Quantitative 54.2 mg/dL (0.0-11.9)
== END ==
LOC: LAB 08:36 → LAB SHORT 08:36
PROVIDERS: Internal Medicine Hematology & Oncology
DX: C90.00 Multiple myeloma not having achieved remission (principal)
CPT/HCPCS: 81050; 84156

== ENCOUNTER 2022-05-09 18:39 | Inpatient (IN) | payer BC ==
[~2022-05-09] VITALS: Ht 193 cm; Wt 88.1 kg
[2022-05-09 19:10] LABS: Hematocrit 29.4 % (37.0-53.0); Hemoglobin 9.3 g/dL (13.5-17.5); Mean Corpuscular HGB 28.8 pg (26.0-34.0); Mean Corpuscular HGB Conc 31.6 g/dL (31.5-36.5); Mean Corpuscular Volume 91 fL (80-100); NRBC ABSOLUTE 0.02 K/mm3 (0.00-0.02); NRBC Auto 1.3 /100 WBC (0.0-0.2); Platelet Count 82 K/mm3 (150-400); RDW Coefficient Variation 19.9 % (11.7-14.2); RDW Standard Deviation 65.4 fL (35.1-46.3); Red Blood Cell Count 3.23 M/mm3 (4.30-5.90); White Blood Cell Count 1.59 K/mm3 (4.00-11.30)
[2022-05-09 19:36] LABS: BAND PERCENT MAN 18 % (0-8); BASOPHILS PERCENT MAN 0 % (0-2); EOSINOPHILS PERCENT MAN 0 % (0-6); LYMPHOCYTES % ATYPICAL MANUAL 1 % (0-0); LYMPHOCYTES ABSOLUTE MAN 0.01 K/mm3 (0.84-5.20); MONOCYTES ABSOLUTE MAN 0.01 K/mm3 (0.16-1.47); MONOCYTES PERCENT MAN 1 % (4-13); NEUTROPHILS ABSOLUTE MAN 1.55 K/mm3 (1.96-9.15); SEG NEUTROPHILS PERCENT MAN 80 % (41-73); TOTAL CELLS COUNTED 100
[2022-05-09 19:39] LABS: Alanine Aminotransfer (ALT/SGP 18 U/L (12-78); Albumin, Blood 2.4 g/dL (3.4-5.0); Albumin/Globulin Ratio 1.1 (0.8-1.8); Alk Phos 75 U/L (50-136); Anion Gap 12 mmol/L (6-16); Aspartate Aminotrans (AST/SGOT 49 U/L (12-37); Bilirubin, Total 1.9 mg/dL (0.1-1.0); Blood Urea Nitrogen 57 mg/dL (8-24); Bun/Creatinine Ratio 34.5 (12.0-20.0); CO2, Blood 15 mmol/L (21-32); Calcium, Blood 8.2 mg/dL (8.5-10.1); Chloride, Blood 110 mmol/L (98-108); Creatinine, Blood 1.65 mg/dL (0.60-1.20); Digoxin (Lanoxin) 0.84 ug/mL (0.80-2.00); Globulin, Blood 2.1 g/dL (2.2-4.0); Glomerular Filtration Rate 45 (60-); Glucose, Blood 78 mg/dL (70-99); Potassium, Blood 3.7 mmol/L (3.5-5.5); Sodium, Blood 137 mmol/L (136-145); Total Protein, Blood 4.5 g/dL (6.4-8.2)
[2022-05-09 21:16] LABS: Source, Urine Voided
[2022-05-09 21:25] LABS: Appearance, Urine Clear (Clear); Bilirubin, Urine Neg (Neg); Blood, Urine 1+ (Neg); Color, Urine Yellow (P-Yellow); Glucose Qualitative, Urine Neg (Neg); Ketones, Urine Neg (Neg); Leukocyte Esterase, Urine Neg (Neg); Nitrite, Urine Neg (Neg); Protein, Urine 1+ (Neg); Specific Gravity, Urine 1.015 (1.003-1.022); Urobilinogen, Urine NORM (Normal)
[2022-05-09 21:38] LABS: Amorphous Light (0-Heavy); Bacteria Not Seen /hpf; Red Blood Cells, Urine 0-2 /hpf (0-2); Squamous Epithelial Cells Not Seen /hpf (Few); White Blood Cells, Urine Not Seen /hpf (0-5)
[2022-05-09 22:32] LABS: pH Blood Venous 7.45 (7.34-7.37)
[2022-05-09 22:33] LABS: Base Excess Venous -7.7 mmol/L; Bicarbonate Venous 18.9 mmol/L (24.0-30.0); PCO2 Venous 23.7 mmHg (38-42)
[2022-05-10] MEDS ORDERED: ACYC400 PO (02:07)
[2022-05-10] MEDS ORDERED: POTCHL20ER PO (02:07)
[2022-05-10] MEDS ORDERED: LANOXIN125 MC1 PO (02:08)
[2022-05-10] MEDS ORDERED: DEXA6 (02:11)
[2022-05-10] MEDS ORDERED: MEGE40T PO (02:11)
[2022-05-10 02:55] LABS: Source, Urine Foley catheter
[2022-05-10 03:00] LABS: Hematocrit 23.7 % (37.0-53.0); Hemoglobin 7.6 g/dL (13.5-17.5); Mean Corpuscular HGB 28.6 pg (26.0-34.0); Mean Corpuscular HGB Conc 32.1 g/dL (31.5-36.5); Mean Corpuscular Volume 89 fL (80-100); Platelet Count 64 K/mm3 (150-400); RDW Coefficient Variation 20.2 % (11.7-14.2); RDW Standard Deviation 64.4 fL (35.1-46.3); Red Blood Cell Count 2.66 M/mm3 (4.30-5.90)
[2022-05-10 03:04] LABS: Base Excess Venous -7.6 mmol/L; Bicarbonate Venous 18.8 mmol/L (24.0-30.0); PCO2 Venous 29.6 mmHg (38-42); pH Blood Venous 7.38 (7.34-7.37)
[2022-05-10 03:20] LABS: Bilirubin, Urine Neg (Neg); Blood, Urine 3+ (Neg); Glucose Qualitative, Urine Neg (Neg); Ketones, Urine Neg (Neg); Leukocyte Esterase, Urine Neg (Neg); Nitrite, Urine Neg (Neg); Protein, Urine 2+ (Neg); Specific Gravity, Urine 1.015 (1.003-1.022); Urobilinogen, Urine NORM (Normal)
[2022-05-10 03:40] LABS: Appearance, Urine Hazy (Clear); Color, Urine Yellow (P-Yellow)
--- NOTE | 2022-05-10 03:46 | NUR ---
ARRIVAL TO ICU 3 PT ARRIVED AT 2345 VIA ED GURNEY. AMIODARONE AND PHENYLEPHRINE GTT INFUSING. SEE FLOWSHEET FOR TITRATIONS. PT A/O TO SELF ONLY. VERY SLURRED SPEECH. ABLE TO UNDERSTAND WORDS AT A TIME. LUNG SOUNDS CLEAR W/ DIM BASES. AFIB W/ RATE 100-120. SPB 80-90'S. DIFFICULT TO GET ACCURATE SPO2 READING. AT THIS TIME, PT SPO2 99% W/ CPAP. RR 30-40'S. PT HAS MULTIPLE SKIN TEARS AND BRUISING T/O BODY. SEE ADMISSION ASSESSMENT FOR FULL ASSESSMENT. PG PLACED TO EVERE. [facility] AND [facility] CALLED TO HOSP. BESS PATENT AND DRAINING TO GRAVITY. AT BEDSIDE AND ABLE TO PROVIDE INFORMATION ON PT.
[2022-05-10 04:10] LABS: Amorphous Mod (0-Heavy); Bacteria Few /hpf; Red Blood Cells, Urine 0-2 /hpf (0-2); Squamous Epithelial Cells Rare /hpf (Few); White Blood Cells, Urine Not Seen /hpf (0-5)
[2022-05-10 05:28] LABS: Albumin, Blood 2.4 g/dL (3.4-5.0); Albumin/Globulin Ratio 1.4 (0.8-1.8); Bilirubin, Total 1.8 mg/dL (0.1-1.0); Bun/Creatinine Ratio 33.7 (12.0-20.0); Calcium, Blood 7.8 mg/dL (8.5-10.1); Creatinine, Blood 1.66 mg/dL (0.60-1.20); Globulin, Blood 1.7 g/dL (2.2-4.0); Magnesium, Blood 2.1 mg/dL (1.6-2.4); Potassium, Blood 3.2 mmol/L (3.5-5.5); Total Protein, Blood 4.1 g/dL (6.4-8.2)
[2022-05-10 05:57] LABS: BAND PERCENT MAN 13 % (0-8); BASOPHILS PERCENT MAN 0 % (0-2); EOSINOPHILS PERCENT MAN 0 % (0-6); LYMPHOCYTES ABSOLUTE MAN 0.01 K/mm3 (0.84-5.20); LYMPHOCYTES PERCENT MAN 1 % (21-46); METAMYELOCYTE ABSOLUTE MAN 0.01 K/mm3 (0.00-0.00); METAMYELOCYTE PERCENT MAN 1 % (0-0); MONOCYTES ABSOLUTE MAN 0.06 K/mm3 (0.16-1.47); MONOCYTES PERCENT MAN 4 % (4-13); NEUTROPHILS ABSOLUTE MAN 1.41 K/mm3 (1.96-9.15); SEG NEUTROPHILS PERCENT MAN 81 % (41-73); TOTAL CELLS COUNTED 100
--- NOTE | 2022-05-10 06:32 | NUR ---
SHIFT SUMMARY NO ACUTE EVENTS T/O NIGHT. PT MORE ALERT THIS AM. ABLE TO UNDERSTAND 4-6 WORDS AT A TIME. PT [place]. AMIODARONE AND PHENYLEPHRINE GTT INFUSING. SEE FLOWSHEET FOR TITRATIONS. AFIB, RATE NOW 80-90'S. RR 20'S. SBP 80-90'S. MAP GREATER THAN 65. ON CPAP. BESS PATENT AND DRAINING TO GRAVITY. HOSP NOTIFIED OF MORNING LABS AND ORDERS RECEIVED.
--- NOTE | 2022-05-10 07:50 | NUR ---
ASSUMED CARE: REPORT RECEIVED FROM EDIN RODRIGUES. ASSUMED CARE OF THIS PT AT APPROX 0700. ON ASSESSMENT, THE PT HAS TAKEN OFF HIS HOME CPAP & IS RESTING QUIETLY. O2 SATS 92-98% ON RA. LS CLEAR T/O. HE IS MUMBLING & DIFFICULT TO UNDERSTAND WHEN ASKED QUESTIONS. RESUMES SLEEPING WHEN NOT STIMULATED. FOLLOWS DIRECTIONS INTERMITTENTLY, SLOWLY. MONITOR SHOWS AFIB W/ HR 90s HYPOTENSIVE W/ NEOSYNEPHRINE INFUSING - TITRATIONS IN FLOWSHEET. PT DENIES HUNGER. BESS PATENT/ DRAINING YELLOW URINE. SKIN CONDITION OVERALL FRAGILE, MULTIPLE AREAS OF ECCHYMOSIS & SKIN TEARS. SEVERE EDEMA NOTED TO BLE. BLE & SKIN TEARS ARE WEEPING. ECCHYMOSIS TO BILAT HIPS R/T FALL AT HOME. WILL CONTINUE TO MONITOR & UPDATE NEEDED.
--- NOTE | 2022-05-10 08:35 | NUR ---
DR WRIGHT: PROVIDER AT BEDSIDE TO EVAL PT THIS AM. THIS RN HAS CLARIFIED THAT PROVIDER WOULD LIKE AN ADDITIONAL 40 MEQ KCL GIVEN AFTER 20 MEQ KCL ORDERED BY [address] JUDGE HOSPITALIST HAS BEEN GIVEN. SHE STS YES, WOULD LIKE A TOTAL OF 60 MEQ KCL GIVEN TO THE PT THIS AM. NO OTHER CAHNGES AT THIS TIME.
--- NOTE | 2022-05-10 13:51 | NUR ---
Met with pt and Jazzy briefly, then met with Jazzy and pt's sister. Jazzy is tearful during this meeting, states her is "only 66" and she is having a hard time thinking their life together may be coming to an end. She talks about quality vs quantity of life, and states this is something she and the pt have been discussing more frequently over the past month. Pt is currently being treated for multiple myeloma by Dr. Horne, and Jazzy states pt has continued getting "sicker and sicker", has been eating and drinking less, and sleeping less since beginning treatment. Both Jazzy and pt's sister agree that pt seems to be pushing back against being constantly reminded to eat, drink and take medication, and Jazzy again brings us "quantinty vs quality" of life, and wonders aloud if pt is giving up, or possibly just failing. Pt's daughter is coming to visit today, and they are planning to discuss continuing vs declining further chemotherapy with pt. I requested pt's daughter, sister and be able to visit pt all together today given the gravity of the situation.
--- NOTE | 2022-05-10 16:20 | NUR ---
UPDATE: THIS RN HAS CONTACTED [facility] & NOTIFIED DR SAAVEDRA' HOME CARE SCHEDULER OF PT's ADMISSION TO THE HOSPITAL, AT THE REQUEST OF ALEJA & MARKUS, THE PT's & DAUGHTER. THE HOME CARE SCHEDULER STS THAT SHE WILL LET DR SAAVEDRA KNOW. THE PT's FAMILY IS CONSIDERING REQUESTING THAT DR SAAVEDRA BE CONSULTED. AFTER DISCUSSING AMONGST THEMSELVES, THEY WOULD LIKE TO WAIT UNTIL TOMORROW TO SEE HOW THE PT CONTINUES RESPONDING TO TREATMENTS.
--- NOTE | 2022-05-10 17:14 | NUR ---
SHIFT SUMMARY: THE PT's MENTATION & COMMUNICATION ARE IMPROVED SUBSTANTIALLY W/ HIS FAMILY AT BEDSIDE. HE IS MORE ALERT & SPEAKING NOW, ALTHOUGH REMAINS DIFFICULT TO UNDERSTAND AT TIMES R/T SPEAKING IN HUSHED TONES. HE IS ALSO SOMEWHAT CONFUSED & HAS DIFFICULTY FINDING THE CORRECT WORDS AT TIMES. PT REMAINS ON RA W/ O2 SATS 92-98%. MONITOR SHOWS AFIB W/ HR 90s, HYPOTENSIVE W/ SBP 80s, MAP > 65. NEOSYNEPHRINE CONTINUES INFUSING. PT HAS TOLERATED SMALL AMNTS OF PO INTAKE THIS SHIFT, REQUIRES ASSISTANCE & ENCOURAGEMENT TO DO SO. BESS PATENT/ DRAINING MARICHUY COLORED URINE W/ OUTPUT INCREASING THIS AFTERNOON, ADEQUATE OUTPUT NOTED FOR SHIFT. SKIN REMAINS OVERALL FRAGILE & IN POOR CONDITION. NO MAJOR CHANGES, WOUNDS/ ABRASIONS NOTED PRIOR. WILL CONTINUE TO MONITOR & REPORT OFF TO ONCOMING RN.
--- NOTE | 2022-05-10 19:10 | NUR ---
ASSUMED CARE OF PT AT 1900 PT RESTING IN BED PLAYING WITH CORDS. PT CONFUSED. A/O X1-2 NO VISITORS AT THIS TIME. AFIB, BP 97/71. HR 110'S. BESS DRAINING TO GRAVITY. DARK MARICHUY URINE PRESENT. SEE FULL ASSESSMENT FROR FURTHER INFORMATION.
[2022-05-11 05:16] LABS: Hematocrit 26.1 % (37.0-53.0); Hemoglobin 8.4 g/dL (13.5-17.5); Mean Corpuscular HGB Conc 32.2 g/dL (31.5-36.5); Mean Corpuscular Volume 90 fL (80-100); Platelet Count 57 K/mm3 (150-400); RDW Coefficient Variation 20.3 % (11.7-14.2); RDW Standard Deviation 65.8 fL (35.1-46.3); White Blood Cell Count 3.28 K/mm3 (4.00-11.30)
--- NOTE | 2022-05-11 05:41 | NUR ---
END OF SHIFT SUMMARY PT RESTED MOST OF THE NIGHT. A/O X1, KNOWS SELF. SAYS THANK YOU WITH CARE. NO VISITORS THIS SHIFT. CARDIAC- LUIS AND AMIO TITRATED AND DC'D THIS SHIFT WITHOUT ISSUES. MAP >65. AFIB WITH IRREGULAR ALARM PRINTED AND IN CHART. NO PO CARDIAC MEDS ORDERED AT THIS TIME PER DR HUGHES. RESP- SPO2 >92% ON RA. LUNG SOUNDS CLEAR WITH DIMINISHED BASES. GI,- BESS CATH DRAINING TO GRAVITY WITH DARK YELLOW URINE PRESENT. NO BM THIS SHIFT. WILL CONTINUE TO MONITOR UNTIL AM RN GIVEN REPORT.
[2022-05-11 06:27] LABS: BAND PERCENT MAN 4 % (0-8); BASOPHILS PERCENT MAN 0 % (0-2); EOSINOPHILS PERCENT MAN 0 % (0-6); LYMPHOCYTES ABSOLUTE MAN 0.03 K/mm3 (0.84-5.20); LYMPHOCYTES PERCENT MAN 1 % (21-46); METAMYELOCYTE ABSOLUTE MAN 0.03 K/mm3 (0.00-0.00); METAMYELOCYTE PERCENT MAN 1 % (0-0); MONOCYTES ABSOLUTE MAN 0.03 K/mm3 (0.16-1.47); MONOCYTES PERCENT MAN 1 % (4-13); NEUTROPHILS ABSOLUTE MAN 3.18 K/mm3 (1.96-9.15); SEG NEUTROPHILS PERCENT MAN 93 % (41-73); TOTAL CELLS COUNTED 100
[2022-05-11 08:45] LABS: Albumin, Blood 1.9 g/dL (3.4-5.0); Bilirubin, Total 1.7 mg/dL (0.1-1.0); Bun/Creatinine Ratio 38.7 (12.0-20.0); Calcium, Blood 7.9 mg/dL (8.5-10.1); Creatinine, Blood 1.55 mg/dL (0.60-1.20); Globulin, Blood 1.9 g/dL (2.2-4.0); Potassium, Blood 3.6 mmol/L (3.5-5.5); Total Protein, Blood 3.8 g/dL (6.4-8.2)
--- NOTE | 2022-05-11 09:10 | NUR ---
ASSUMED CARE: REPORT RECEIVED FROM MARY Weir RN. ASSUMED CARE OF THIS PT AT APPROX 0700. ON ASSESSMENT, THE PT IS AWAKE W/ HIS AT BEDSIDE. HE IS ANSWERING HER QUESTIONS ALTHOUGH IS DIFFICULT TO UNDERSTAND AT TIMES R/T MUMBLING & HUSHED TONES. HE IS [place] & NEEDS DIRECTIONS REPEATED AT TIMES. SLOW TO RESPOND VERBALLY & PHSYICALLY. LS CLEAR T/O, PT ON RA W/ O2 SATS > 92%. MONITOR SHOWS AFIB W/ HR 100-110s, HYPOTENSIVE W/ MAP > 65. NEOSYNEPHRINE OFF SINCE APPROX 0200. PT NPO FOLLOWING ST EVAL, BARIUM SWALLOW ORDERED FOR TOMORROW. PT's AT BEDSIDE DURING THIS TIME & UNDERSTANDING OF NPO RATIONALE, GIVING PT MOIST MOUTH SWABS PRN. BESS PATENT/ DRAINING DARK YELLOW URINE. SKIN CONDITION OVERALL FRAGILE W/ NUMEROUS AREAS OF ECCHYMOSIS, SKIN TEARS & ABRASIONS. Q2H REPOSITIONING TO MAINTAIN SKIN INTEGRITY. WILL CONTINUE TO MONITOR & UPDATE NEEDED.
--- NOTE | 2022-05-11 11:56 | NUR ---
Spiritual Care Visit Pt. is awake and welcomes my visit. Family members are present. pt. is pleasant, but displays evidence of being hard of hearing. Respond by allowing Pt. to read my lips. Establish rapport with Pt. and family with empathetic listing and a calming presence. Prayed with Pt. Pt. verbalized gratitude for the spiritual care visit.
--- NOTE | 2022-05-11 12:38 | NUR ---
Huan WRIGHT & VALARIE: BOTH PROVIDERS HAVE BEEN AT BEDSIDE THIS AM TO EVAL THIS PT. THIS RN HAS VOICED CONCERNS W/ PT's INCREASING HR AFTER AMIODARONE DRIP COMPLETED AT APPROX 5 LAST NIGHT (05/10/22). PROVIDERS HAVE ORDERED THE AMIO BOLUS & DRIP TO BE GIVEN AGAIN BUT THEN CALL THIS RN & STATE TO "HOLD OFF" FOR APPROX 1 HR AT WHICH TIME THE PROVIDERS WILL CONTACT THIS RN TO NOTIFY IF AMIO SHOULD BE ADMINISTERED. THIS RN HAS ALSO DISCUSSED THE POSSIBILITY OF CONSULTING DR SAAVEDRA. THE PT & HIS FAMILY WOULD LIKE TO KNOW HIS OVERALL PROGNOSIS & TX OPTIONS MOVING FOWARD PRIOR TO MAKING ANY DECISIONS REGARDING CONTINUED CARE. THE PT HAS BEEN MADE NPO BY SPEECH THERAPY & THE PT's STS THAT THEY WOULD LIKE TO PROCEED WITH AN NGT & EVENTUAL PEG, BUT ONLY IF THE PT WOULD BE A GOOD CANDIDATE BASED ON DR SAAVEDRA' PROGNOSIS. PROVIDERS STATE THAT THEY WILL DISCUSS THE ABOVE ISSUES IN ROUNDS THIS AM & GET BACK TO THIS RN W/ ANSWERS. THIS RN HAS CONTACTED DR SHEPPARD REGARDING THESE CONCERNS AFTER NOT RECEIVING FURTHER ORDERS AFTER A NUMBER OF HOURS. AMIO WILL CONTINUE TO BE HELD, THIS RN HAS DISCONTINUED ORDERS TO AVOID CONFUSION. PROVIDERS STATE OKAY TO CONSULT DR SAAVEDRA, THIS RN HAS CONTACTED DR SAAVEDRA OFFICE & NOTIFIED OF CONSULTATION. NO OTHER CHANGES AT THIS TIME. W/ THE PT's OVERALL PROGNOSIS & CONTINUED CA TXs BEFORE THEY
--- NOTE | 2022-05-11 16:15 | NUR ---
DOBHOFF PLACEMENT: DOBHOFF PLACED TO LEFT NARE BY THIS RN AT APPROX 1535. THE PT HAS TOLERATED THIS WELL & IS ABLE TO SWALLOW IN ORDER TO ADVANCE THE TUBE EASILY. GUIDEWIRE REMAINS IN PLACE & CXR COMPLETED, BUT NOT YET READ. WILL REMOVE WIRE & BEGIN ORDERED TUBE FEEDS ONCE DOBHOFF PLACEMENT CONFIRMED BY RADIOLOGIST.
--- NOTE | 2022-05-11 18:36 | NUR ---
SHIFT SUMMARY: NO ACUTE CHANGES SINCE PRIOR UPDATES. PT REMAINS ALERT & ORIENTED TO SELF, FOLLOWING DIRECTION & FAMILY. HE IS SOMEWHAT DIFFICULT TO UNDERSTAND R/T MUMBLING & HUSHED TONES. LS CLEAR T/O, PT ON RA W/ O2 SATS > 92%. HE CLEARS HIS THROAT PERSISTENTLY & REQUESTS WATER OFTEN, REQUIRING REMINDERS THAT HE IS NPO. MONITOR SHOWS AFIB W/ HR 100-110s, BP STABLE W/ MAP > 65. SBP RANGING 80-90s WHICH FAMILY STS IS HIS "NEW NORMAL" SINCE MYELOMA DX. DOBHOFF NGT IN PLACE TO LEFT NARE. CONFIRMED BY DR SERRA, RADIOLOGIST, TO BE WELL-POSITIONED. THIS RN HAS REMOVED GUIDEWIRE & INITIATED TUBE FEEDS PER ORDERS. JEVITY INFUSING AT 40 ML/HR W/ 100 ML H2O FLUSH Q4H. NO BM THIS SHIFT. BESS PATENT/ DRAINING DARK YELLOW URINE. SKIN CONDITION OVERALL FRAGILE W/ NUMEROUS AREAS OF SKIN TEARS, ECCHYMOSIS & ABRASIONS. WEEPING EXTREMITIES & SKIN TEARS. THIS RN HAS REDRESSED THE PT's SKIN TEARS ON HIS LEFT ELBOW, PLACING A MEPITEL ONE DRESSING, NONADHERENT PADS & CURLEX GAUZE. DRYFLO PADS UNDER BLE TO KEEP EXTREMITIES DRY. WILL CONTINUE TO MONITOR & REPORT OFF TO ONCOMING RN.
--- NOTE | 2022-05-11 19:19 | NUR ---
ASSUMED CARE OF PT AT 1900 PT AWAKE AND RESTING IN BED. A/O X1-2. SPOUSE JUST LEFT ROOM FOR THE NIGHT. BP 90/66 (75), HR 110'S. SPO2 99% ON RA. BESS DRAINING TO GRAVITY WITH YELLOW URINE PRESENT. JEVITY TF RUNNING AT 40 MLS/HR WITH GOAL OF 60 MLS/HR. TKO NS RUNNING AT 10 MLS/HR. SEE FULL ASSESSSMENT FOR FURTHER INFORMATION.
[2022-05-12 04:06] LABS: Hematocrit 26.9 % (37.0-53.0); Hemoglobin 8.5 g/dL (13.5-17.5); Mean Corpuscular HGB 28.3 pg (26.0-34.0); Mean Corpuscular HGB Conc 31.6 g/dL (31.5-36.5); Mean Corpuscular Volume 90 fL (80-100); NRBC ABSOLUTE 0.02 K/mm3 (0.00-0.02); NRBC Auto 0.4 /100 WBC (0.0-0.2); Platelet Count 56 K/mm3 (150-400); RDW Coefficient Variation 20.5 % (11.7-14.2); White Blood Cell Count 4.69 K/mm3 (4.00-11.30)
[2022-05-12 04:28] LABS: Albumin, Blood 1.9 g/dL (3.4-5.0); Bilirubin, Total 1.4 mg/dL (0.1-1.0); Creatinine, Blood 1.7 mg/dL (0.60-1.20); Globulin, Blood 1.9 g/dL (2.2-4.0); Magnesium, Blood 2.1 mg/dL (1.6-2.4); Phosphorus, Blood 3.2 mg/dL (2.5-4.9); Potassium, Blood 3.4 mmol/L (3.5-5.5); Total Protein, Blood 3.8 g/dL (6.4-8.2)
[2022-05-12 05:28] LABS: BAND PERCENT MAN 1 % (0-8); BASOPHILS PERCENT MAN 0 % (0-2); EOSINOPHILS PERCENT MAN 0 % (0-6); LYMPHOCYTES ABSOLUTE MAN 0.04 K/mm3 (0.84-5.20); LYMPHOCYTES PERCENT MAN 1 % (21-46); MONOCYTES ABSOLUTE MAN 0.18 K/mm3 (0.16-1.47); MONOCYTES PERCENT MAN 4 % (4-13); NEUTROPHILS ABSOLUTE MAN 4.45 K/mm3 (1.96-9.15); SEG NEUTROPHILS PERCENT MAN 94 % (41-73); TOTAL CELLS COUNTED 100
--- NOTE | 2022-05-12 05:42 | NUR ---
END OF SHIFT SUMMARY A/O X3. PT CONFUSED BUT ABLE TO REORIENT. PULLS AT LEADS AND SPO2 PROBE CONSTANTLY. PT IS GETTING MORE ANXIOUS AND CONFUSED THROUGH THIS MORNING LOOKING FOR HIS CELL PHONE AND PEELING ALL COVERS FROM HIMSELF. CARDIAC- A-FIB AND IRREGULAR HR THROUGHOUT SHIFT. SBP 100'S. HR 110'S. CONSIDERABLE SWELLING IN BLE WITH 3+ PITTING. RESP-SPO2 >90% ON RA. PT REFUSED CPAP MULTIPLE TIMES. PULLED IT OFF CONSTANTLY THROUGHOUT THE NIGHT. SPO2 STAYED ABOVE 90% REGARDLESS. GI,- NO BM THIS SHIFT. BESS PATENT AND DRAINING TO GRAVITY WITH YELLOW URINE PRESENT. WILL CONTINUE TO MONITOR UNTIL REPORT GIVEN TO AM RN.
--- NOTE | 2022-05-12 10:03 | NUR ---
AM NOTE.... ASSUMED CARE OF PT AT 0700, PER REPORT THE PT WAS MORE CONFUSED THAN HE HAD BEEN THE PREVIOUS NIGHT. THIS AM THE PT PULLED OUT HIS DOBHOFF AND ALMOST PULLED HIS POWERGLIDE OUT OF HIS CORNELIA. THE DOBHOFF WAS REPLACED AND AWAITING XRAY PLACEMENT VERIFICATION. ORAL CARE DONE SEVERAL TIMES THIS AM PER PT REQUEST. HE IS IN AFIB IN THE 100'S-120'S BP SOFT BUT STABLE WITH MAPS >70. THE PT HAS 3+ WHEEPING EDEMA NOTED TO HIS LLE, 2+ TO HIS RLE AND DEPENDENT EDEMA NOTED TO HIS BUE. L/S CLEAR T/O ON RA WITH O2 SATS >92%. BT PRESENT AND HYPOACTIVE, ABD SOFT AND NONTENDER TO PALPATION. WILL CONTINUE TO MONITOR.
--- NOTE | 2022-05-12 10:41 | NUR ---
PT UPDATE.... AT 1030 THE PT LEFT FOR BARIUM SWALLOW EVAL, REPORT WAS GIVEN TO HANNAH JESUS WHO WENT WITH THE PT TO THE BARIUM SWALLOW.
--- NOTE | 2022-05-12 13:25 | NUR ---
ASSUMED CARE OF PATIENT AT 1000, IMMEDIATELY TAKEN TO RADIOLOGY SUITE FOR SWALLOW EVAL. PT TALKING WITHOUT MOVING HIS TONGUE AND IS HAVING DIFFICULTY SWALLOWING. HE IS UNABLE TO CLEAR HIS THROAT OR TAKE A DEEP BREATH AND COUGH. PT IS SLIGHTLY CONFUSED ABOUT DETAILS AND IS UNSURE OF WHERE HE IS AT THIS TIME. HIS IS BY THE BEDSIDE. SHAKEELJUANIS IS PROVIDING HIS FEEDING AT 60ML/HR WITH 100ML H20 FLUSH Q4HR. HE HAS PITTING EDEMA FROM [place] DOWN TO HIS TOES. DEEP ORAL SUCTIONING WAS DONE, PT DIDN'T LIKE IT BUT TOLERATED WELL. ORDER RECEIVED FOR MAGIC MOUTHWASH PT IS COMPLAINING OF 8/10 PAIN R/T ORAL SORES FROM CHEMOTHERAPY.
--- NOTE | 2022-05-12 15:00 | NUR ---
PT UNABLE TO STATE LOCATION, MONTH, DAY OF THE WEEK. PT AWARE THAT IT IS 2022. IS AT BEDSIDE, WITNESSING PT'S ANSWERS. PT CONTINUED TO SAY HE WAS IN [place], ALSO THOUGHT THAT HE WAS FOR ONLY 30 SOME YEARS, YET SAYS IT IS 43. PT CONTINUES TO FORGET THAT HE ISN'T ABLE TO SWALLOW WELL AND HE IS ASPIRATING, THIS IS REINFORCED SEVERAL TIMES.
--- NOTE | 2022-05-12 18:08 | NUR ---
RADHA WAS ADAMANT ABOUT GOING TO THE BATHROOM, HE WAS UPSET THAT NO ONE WOULD LET HIM GO. HE WAS REMINDED THAT HE HAS A CATHETER. FINALLY JUST SAT HIM ON THE EDGE OF THE BED, HE WAS MAX ASSIST AND UNABLE TO HOLD HIMSELF UPRIGHT. HE WAS UNABLE TO MOVE HIS LEGS OFF THE BED OR STEADY HIMSELF WITH HIS ARMS. BACK RUB WITH LOTION GIVEN AND LEGS LOTIONED BY FAMILY WHILE IN ON THE EDGE OF THE BED. PT'S HEART RATE JUMPED TO NEARLY 150 AT ONE POINT. IT WENT BACK TO 120'S. PT CONTINUES TO NOT REMEMBER WHAT IS SAID TO HIM AND REPEATS THE SAME QUESTIONS. DEEP ORAL SUCTIONING DONE BY THIS RN WITH FLEXIBLE TUBING. ABLE TO CLEAR SOME OF THE SECRETIONS. CONTINUES TO CLEAR HIS THROAT WITH A WEAK COUGH AND WEAK SWALLOW.
--- NOTE | 2022-05-12 18:56 | NUR ---
FAMILY HAS LEFT FOR THE EVENING, PT IS RESTING QUIETLY.
--- NOTE | 2022-05-13 01:58 | NUR ---
ASSUMED CARE ASSUMED CARE AT 1900. PT AGITATED AND TRYING TO GET OOB. PULLING AT LINES AND TUBES. PT PUT ON REMOTE MONITORING FOR SAFETY. HR UP TO 150'S. RR 30-40'S. A/O TO SELF ONLY. CALL TO HOSP AND ORDER RECEIVED FOR 1MG ATIVAN. AFTER MEDICATION GIVEN PT CALM, NOT PULLING AT LINES, HR DOWN TO 110'S, AND RR IN 20'S. AFIB. VSS. SEE SHIFT ASSESSMENT FOR FULL ASSESSMENT. DOBBHOFF W/ TF AT GOAL. BESS PATENT AND DRAINING TO GRAVITY.
[2022-05-13 03:33] LABS: Hematocrit 25.5 % (37.0-53.0); Mean Corpuscular HGB 28.7 pg (26.0-34.0); Mean Corpuscular HGB Conc 31.4 g/dL (31.5-36.5); Mean Corpuscular Volume 91 fL (80-100); RDW Coefficient Variation 20.5 % (11.7-14.2); RDW Standard Deviation 67.2 fL (35.1-46.3); Red Blood Cell Count 2.79 M/mm3 (4.30-5.90); White Blood Cell Count 3.21 K/mm3 (4.00-11.30)
[2022-05-13 03:46] LABS: Platelet Count 49 K/mm3 (150-400)
[2022-05-13 03:54] LABS: Magnesium, Blood 2.3 mg/dL (1.6-2.4)
[2022-05-13 04:03] LABS: Anion Gap 7 mmol/L (6-16); Blood Urea Nitrogen 66 mg/dL (8-24); Bun/Creatinine Ratio 46.8 (12.0-20.0); CO2, Blood 19 mmol/L (21-32); Calcium, Blood 8.2 mg/dL (8.5-10.1); Chloride, Blood 122 mmol/L (98-108); Creatinine, Blood 1.41 mg/dL (0.60-1.20); Digoxin (Lanoxin) 0.99 ug/mL (0.80-2.00); Glomerular Filtration Rate 54 (60-); Glucose, Blood 144 mg/dL (70-99); Phosphorus, Blood 2.3 mg/dL (2.5-4.9); Potassium, Blood 3.3 mmol/L (3.5-5.5); Sodium, Blood 148 mmol/L (136-145)
[2022-05-13 04:17] LABS: BASOPHILS PERCENT MAN 0 % (0-2); EOSINOPHILS ABSOLUTE MAN 0.03 K/mm3 (0.00-0.68); EOSINOPHILS PERCENT MAN 1 % (0-6); LYMPHOCYTES % ATYPICAL MANUAL 1 % (0-0); LYMPHOCYTES ABSOLUTE MAN 0.12 K/mm3 (0.84-5.20); LYMPHOCYTES PERCENT MAN 3 % (21-46); MONOCYTES ABSOLUTE MAN 0.03 K/mm3 (0.16-1.47); MONOCYTES PERCENT MAN 1 % (4-13); NEUTROPHILS ABSOLUTE MAN 3.01 K/mm3 (1.96-9.15); SEG NEUTROPHILS PERCENT MAN 94 % (41-73); TOTAL CELLS COUNTED 100
--- NOTE | 2022-05-13 04:18 | NUR ---
[facility]ORNING [facility] CALLED REGARDING PLT LVL, POTASSIUM LVL, AND PHOS LVL. ORDER RECEIVED FOR 40 MEQ KCL IV ONE TIME.
--- NOTE | 2022-05-13 05:37 | NUR ---
SHIFT SUMMARY NO ACUTE EVENTS T/O NIGHT. PT SLEPT MOST OF THE NIGHT. ORAL CARE COMPLETED Q4. VSS. BP SOFT AT TIMES. MAP GREATER THAN 65. ON RA. DOBBHOFF W/ TF AT GOAL. BESS PATENT AND DRAINING TO GRAVITY. CALLED LAST NIGHT AND UPDATED ON PT STATUS. HOSP CALLED BACK REGARDING PLT LVL. HOSP WOULD LIKE DISCUSSION WITH THIS AM REGARDING ELIQUIS AND RISK OF STROKE VS RISK OF BLEEDING. CHARGE NURSE UPDATED. WILL PASS ON AND REPORT OFF TO DAY SHIFT.
--- NOTE | 2022-05-13 10:05 | NUR ---
PT'S BED BATH GIVEN, PT TURNED AND REPOSITIONED. PT'S BACKSIDE IS VERY EVELYN WITH PURPLE DISCOLORATION AT THE SACRUM, SKIN TEARS ON EITHER SIDE OF THE ANUS. HIPS BRUISED BILATERALLY WITH LATERAL THIGH EDEMA. CALF TO TOE EDEMA CONTINUES TO BE 3+ PITTING, MORE DIFFICULT TO FEEL PEDAL PULSES TODAY THROUGH THE EDEMA. PT'S ARMS WITH ECCHYMOSIS AND SKIN TEARS FROM IV DRESSINGS. PT CONTINUES TO BE VERY WEAK, WITH MINIMAL MOVEMENT ON HIS OWN. ARMS AND LEGS ELEVATED ON PILLOWS AND REPOSITIONED TO OPPOSITE SIDE Q2. TUBE FEEDINGS CONTINUE WITHOUT ANY EVIDENCE OF INTOLERANCE. POTASSIUM REPLACEMENT DONE, LAB DRAW DUE AT NOON. UPDATE GIVEN TO DAUGHTER VIA PHONE.
--- NOTE | 2022-05-13 14:33 | NUR ---
PT'S MOUTH IS SO DRY AND SCABS ARE PRESENT IN THE POSTERIOR UPPER PALATE. HUMIDIFIED AIR IS SUPPLIED VIA MASK. LIKES THIS, PT SEEMS TO BE CLOSING HIS MOUTH MORE. ENCOURAGED TO BREATHE THROUGH HIS NOSE AND CLOSE HIS MOUTH, HE DOESN'T FOLLOW DIRECTIONS. HE IS CLEARING HIS THROAT ON OCC AND ATTEMPTING TO SWALLOW. ASKS FOR WATER, REMINDED THAT HE IS NOT SWALLOWING WELL. DOBBHOFF TF CONTINUES WITH 100ML H20 Q4 AND PRN.
--- NOTE | 2022-05-13 16:08 | NUR ---
Met with pt's Chantel at bedside. She reports pt had become agitated and needed a dose of lorazepam at some point today. Pt is lying in bed, breathing with his mouth open, eyes closed. NG tube in place for nutrition. Pt's states she is "angry" with ST for expecting the pt to be able to "swallow water off some huge spoon when his damn mouth is so dry". She also stated the pt "wasn't anything like this before I brought him "in here, so it makes me wonder." I asked her to clarify what issues seemed worse since her 's admission, and she replied, "Everything. Everything is worse". She then stated she realizes this probably isn't her "best behavior", and states she is just overwhelmed and tired. Chantel also stated feeling frustrated that Dr. Horne stated everything seems to look good from the perspective of his myeloma diagnosis, yet here he is lying in a hospital bed, confused and tired. Will continue to offer supportive visits.
--- NOTE | 2022-05-13 16:13 | NUR ---
RADHA CONTINUES TO BE VERY SLEEPY TODAY. HE AWAKENS AND SAYS WORDS, LIKE "PLEASE" AND "THANK YOU" "WATER" AND "COME ON". HE IS FRUSTRATED THAT HE ISN'T ALLOWED TO TAKE IN WATER. ANISA IS IN TO SPEAK WITH THE , ALEJA ABOUT THE FILMS AND THE OPTION OF A PEG TUBE. GETS VISIBLY SHAKEN WHEN ITS MENTIONED.
--- NOTE | 2022-05-13 17:39 | NUR ---
RADHA CONTINUES TO BE WEAK AND FAILING TO SWALLOW WELL. EFFORTS MADE TO PUT THE MAGIC MOUTHWASH ON THE LESIONS IN HIS POSTERIOR PHARYNX AND HE DOESN'T LIKE TO OPEN HIS MOUTH. ENCOURAGED TO BREATHE THROUGH HIS NOSE, DOESN'T UNDER- STAND. ENCOURAGED TO PRACTICE SWALLOWING AND TALKING. ATTEMPTS TO HYDRATE THE THROAT WITH HUMIDIFIED AIR VIA FACE MASK. HE TOLERATED IT VERY WELL THEN BEGAN MAKING MORE SALIVA AND WAS UNABLE TO SWALLOW THAT. UPPER AIRWAY GURGLE, LUNG BASES DIMINISHED BUT CLEAR. ENCOURAGED TO DEEP BREATHE AND COUGH, PT MAINLY CLEARS HIS THROAT. IS FRUSTRATED AND UPSET, HAVING A DIFFICULT TIME PROCESSING ALL THE OPTIONS BEING DISCUSSED WITH HER. CONTINUE TO MONITOR AND TREAT.
--- NOTE | 2022-05-13 18:38 | NUR ---
daughter Shonna is here without mom. She mentioned that her mother is in quite a bit of denial regarding Edgardo's cancer and treatment. Shonna states that her mother feels that Edgardo needs to "man up" and be strong and brave and he will defeat this. Shonna says that she feels that she is more aware of what is hap- pening with her father and his treatment and that she is a better advocate for him. Will share with nurses caring for him.
[2022-05-14 04:40] LABS: Calcium, Blood 8.1 mg/dL (8.5-10.1); Creatinine, Blood 1.28 mg/dL (0.60-1.20); Magnesium, Blood 2.2 mg/dL (1.6-2.4); Phosphorus, Blood 2.2 mg/dL (2.5-4.9); Potassium, Blood 3.9 mmol/L (3.5-5.5)
--- NOTE | 2022-05-14 05:29 | NUR ---
END OF SHIFT SUMMARY LINES: LEFT WRIST PIV AND CORNELIA PG NEURO/MUSCULOSKELETAL: ALERT AND ORIENTED TO SELF, PLACE AND FAMILY. INTERMITTENTLY FOLLOWS SIMPLE COMMANDS BUT GENERALLY CONFUSED AND HYPER FIXATED ON HAVING WATER DESPITE REMINDERS HE IS NPO. WAS PULLING AT LINES AND DHT THIS EVENING. PLACED IN RESTRAINTS. GROSS SENSATION INTACT. WITHDRAWS ALL FOUR EXTREMITIES FROM NOXIOUS STIMULI. BUE OVERCOME GRAVITY, BLE DO NOT. RESPIRATORY: RA FOR MAJORITY OF NIGHT UNTIL APNEIC EVENTS OCCURED. PLACED ON CPAP 4L O2. SATTING >95%. WEAK AND NON PRODUCTIVE COUGH. INTERMITTENT BUL RHONCHOROUS BREATH SOUNDS NOTED AND CLEAR BLL APPRECIATED. COPIOUS MANE/CLEAR THICK SECRETIONS. CARDIAC: AFIB. HR 90s-100s. CAP REFILL < 3 SECONDS. BLE +3 PITTING EDEMA NOTED. THIGH HIGH MONIQUE HOSE PLACED ON PT. GI/: HYPOACTIVE BOWEL SOUNDS NOTED. ABDOMEN SOFT AND NO PAIN DETECTED WITH PALPATION. NO BOWEL MOVEMENT OVERNIGHT. BESS IN PLACE AND SECURED, DRAINING TO GRAVITY WITH NO DEPENDENT LOOPS. PUTTING OUT ADEQUATE AMOUNTS OF CLEAR YELLOW URINE. INTEGUMENTARY: DIFFUSE ABRASIONS AND SKIN TEARS NOTED TO BUE. ABRASION TO RIGHT EYEBROW. BRUISING TO BILATERAL HIPS AND NON BLANCHABLE COCCYX BRUISE
--- NOTE | 2022-05-14 08:56 | NUR ---
[place] of Care: Care assumed at 0700hr. Patient sleeping, easily roused to verbal stimuli. Speech very mumbled and difficult to understand, unable to assess orientation. Follows simple commands, nods head yes/no. CPAP while sleeping, otherwise on RA, spO2 100%, denies dyspnea/SOB, VSS. Bilateral soft wrist restraints in place to protect lines, tubes, cords. Restraints removed this morning, patient continually attempts to pull out DobHoff, not re-directable. TF per DobHoff at goal rate, no s/s of GI intolerance. Peripheral IV to lt wrist, Powerglide to CORNELIA patent and intact. Graff cath patent and intact. Will continue to monitor.
[2022-05-14 11:33] LABS: BASOPHILS ABSOLUTE AUTO 0.01 K/mm3 (0.00-0.23); BASOPHILS PERCENT AUTO 0 % (0-2); EOSINOPHILS PERCENT AUTO 0 % (0-6); Hematocrit 26.1 % (37.0-53.0); Hemoglobin 7.9 g/dL (13.5-17.5); IMMATURE GRAN ABSOLUTE AUTO 0.03 K/mm3 (0.00-0.10); IMMATURE GRAN PERCENT AUTO 1 % (0-1); LYMPHOCYTES ABSOLUTE AUTO 0.11 K/mm3 (0.84-5.20); LYMPHOCYTES PERCENT AUTO 4 % (21-46); MONOCYTES ABSOLUTE AUTO 0.05 K/mm3 (0.16-1.47); MONOCYTES PERCENT AUTO 2 % (4-13); Mean Corpuscular HGB 28.4 pg (26.0-34.0); Mean Corpuscular HGB Conc 30.3 g/dL (31.5-36.5); Mean Corpuscular Volume 94 fL (80-100); NEUTROPHILS ABSOLUTE AUTO 2.48 K/mm3 (1.96-9.15); NEUTROPHILS PERCENT AUTO 93 % (41-73); RDW Coefficient Variation 20.6 % (11.7-14.2); RDW Standard Deviation 69.8 fL (35.1-46.3); Red Blood Cell Count 2.78 M/mm3 (4.30-5.90); White Blood Cell Count 2.68 K/mm3 (4.00-11.30)
[2022-05-14 12:00] LABS: Platelet Count 40 K/mm3 (150-400)
--- NOTE | 2022-05-14 18:00 | NUR ---
TRANSFER FROM ICU TO PCU 11. LIFT TRANSFER TO BED. PLACED EGG CRATE ON BED PER FAMILY REQUEST. PT KEEPS EYE'S CLOSED T/O TRANSFER. DOBHOFF SECURED TO CHEEK, MOVED PLACEMENT TO PROTECT FRAIL SKIN. FAMILY ACCOMPANIES PT. NO SIGN OF DISTRESS.
--- NOTE | 2022-05-14 18:08 | NUR ---
Shift Summary/Transfer to PCU 11: VS remain stable throughout shift, spO2 99-100% on RA. No s/s of dyspnea/SOB. Denies pain, but moans with turns/cares in bed. Thick secretions in the upper airway throughout shift, LS clear. Patient has very weak cough and unable to clear secretions. Deep oral suctioning with yaunker and NT suction catheter effective to remove large amount of thick yellow/blood tinged secretions. Extensive oral care x3 this shift, effective to remove large cast on roof of mouth, back of tongue and teeth. Small amount of diffuse bleeding throughout mouth with oral care. Tolerated TF at goal without difficulty. Graff cath remains patent and intact, draining clear yellow urine, 750ml output this shift. Family at bedside throughout shift, appear anxious and have multiple questions r/t patient's care. Continued discussion r/t care and answering questions effective to alleviate any concerns. Transferred to PCU 11 without difficulty. Bedside report given to Barbara JESUS.
[2022-05-15 04:06] LABS: BASOPHILS PERCENT AUTO 0 % (0-2); EOSINOPHILS PERCENT AUTO 0 % (0-6); Hematocrit 25.2 % (37.0-53.0); Hemoglobin 7.7 g/dL (13.5-17.5); IMMATURE GRAN ABSOLUTE AUTO 0.04 K/mm3 (0.00-0.10); IMMATURE GRAN PERCENT AUTO 1 % (0-1); LYMPHOCYTES ABSOLUTE AUTO 0.13 K/mm3 (0.84-5.20); LYMPHOCYTES PERCENT AUTO 5 % (21-46); MONOCYTES ABSOLUTE AUTO 0.05 K/mm3 (0.16-1.47); MONOCYTES PERCENT AUTO 2 % (4-13); Mean Corpuscular HGB 28.4 pg (26.0-34.0); Mean Corpuscular HGB Conc 30.6 g/dL (31.5-36.5); Mean Corpuscular Volume 93 fL (80-100); NEUTROPHILS PERCENT AUTO 92 % (41-73); RDW Coefficient Variation 20.6 % (11.7-14.2); RDW Standard Deviation 69.8 fL (35.1-46.3); Red Blood Cell Count 2.71 M/mm3 (4.30-5.90); White Blood Cell Count 2.82 K/mm3 (4.00-11.30)
[2022-05-15 04:17] LABS: Platelet Count 38 K/mm3 (150-400)
[2022-05-15 04:25] LABS: Bun/Creatinine Ratio 56.7 (12.0-20.0); Calcium, Blood 8.1 mg/dL (8.5-10.1); Creatinine, Blood 1.2 mg/dL (0.60-1.20); Potassium, Blood 4.4 mmol/L (3.5-5.5)
--- NOTE | 2022-05-15 05:54 | NUR ---
SHIFT SUMMARY ASSUMED CARE OF PT AT 1900. PT IS ALERT BUT NOT ORIENTED AND IS FORGETFUL. PT CAN SAY ONE WORD SENTENCES WITH SLURRED SPEACH. POSSIBLY DUE TO SORES IN MOUTH. ORAL CARE EVERY 4 HOURS. PT GRIMACES AND THERE IS BLOOD ON THE SPONGES. PT KEEPS ASKING FOR WATER, WHEN TOLD NO SEVERAL TIMES PT BEGAN TO CRY. PT DID NOT TEAR AT NG TUBE BUT DID PULL AT BESS AND TELE LINES. HEART SOUNDS AFIB 110-120 BPM. LUNG SOUNDS DIMINSIHED AT BASES. PT HAS A GURGLE IN THROAT DESPITE SUCTION. PT HAD A BESS DRAINING WITH GRAVITY. PT HAS EXTENSIVE WOUNDS ON COCCYX, DRESSINGS CHANGED AND TURNED Q2. PT ON CAMERA MONITORING.
--- NOTE | 2022-05-15 13:12 | NUR ---
PT FAMLY AT BEDSIDE. FAMILY UPDATED. FAMILY ASSISTING WITH CARE IN PT ROOM.
--- NOTE | 2022-05-15 17:19 | NUR ---
SHIFT SUMMARY PT ORIENTED TO SELF AND SOME FAMILY. PT ABLE TO GIVE HIS NAME AND . AT BEGINNING OF SHIFT PT ABLE TO GIVE ONE WORD SENTENCES, TOWARDS END OF SHIFT PT ABLE TO SPEAK 3-4 WORD SENTENCES. PT BP SOFT WITH SBP IN THE 90'S THROUGHOUT SHIFT. PT HR A-FIB @ 100-110'S THROUGHOUT SHIFT. OTHER VSS THROUGHOUT SHIFT WITH 02 SATS IN 90'S ON RA. PT TRANSFERED TO AND FROM RECLINER VIA FLOOR LIFT, TOLERATED WELL. PT DOBHOFF FLUSH INCREASED TO 320ML EVERY 4 HOURS PER DOCTOR ORDERS. PRN DEEP SUCTION ORDERED PER PT FAMILY REQUEST, DEEP SUCTION PERFORMED BY RT, PT TOLERATED FAIR. BESS IN PLACE DRAINING TO GRAVITY, YELLOW URINE. PT CONSTANTLY STATING "I NEED TO GO TO THE BATHROOM." PT REMINDED OF BESS. PT HAS BEEN PULLING AT TELE AND BESS, PT ON CAMERA, FAMILY WAS AT BEDSIDE FOR MOST OF SHIFT REMINDING PT NOT TO PULL AT LINES.
[2022-05-16 03:41] LABS: BASOPHILS ABSOLUTE AUTO 0.01 K/mm3 (0.00-0.23); BASOPHILS PERCENT AUTO 0 % (0-2); EOSINOPHILS ABSOLUTE AUTO 0.01 K/mm3 (0.00-0.68); EOSINOPHILS PERCENT AUTO 0 % (0-6); Hematocrit 24.8 % (37.0-53.0); Hemoglobin 7.4 g/dL (13.5-17.5); IMMATURE GRAN ABSOLUTE AUTO 0.02 K/mm3 (0.00-0.10); IMMATURE GRAN PERCENT AUTO 1 % (0-1); LYMPHOCYTES ABSOLUTE AUTO 0.13 K/mm3 (0.84-5.20); LYMPHOCYTES PERCENT AUTO 6 % (21-46); MONOCYTES ABSOLUTE AUTO 0.04 K/mm3 (0.16-1.47); MONOCYTES PERCENT AUTO 2 % (4-13); Mean Corpuscular HGB 27.9 pg (26.0-34.0); Mean Corpuscular HGB Conc 29.8 g/dL (31.5-36.5); Mean Corpuscular Volume 94 fL (80-100); NEUTROPHILS ABSOLUTE AUTO 2.03 K/mm3 (1.96-9.15); NEUTROPHILS PERCENT AUTO 91 % (41-73); RDW Coefficient Variation 20.7 % (11.7-14.2); RDW Standard Deviation 70.4 fL (35.1-46.3); Red Blood Cell Count 2.65 M/mm3 (4.30-5.90); White Blood Cell Count 2.24 K/mm3 (4.00-11.30)
[2022-05-16 03:50] LABS: Platelet Count 33 K/mm3 (150-400)
[2022-05-16 04:05] LABS: Bun/Creatinine Ratio 60.3 (12.0-20.0); Calcium, Blood 7.9 mg/dL (8.5-10.1); Creatinine, Blood 1.16 mg/dL (0.60-1.20); Potassium, Blood 4.3 mmol/L (3.5-5.5)
--- NOTE | 2022-05-16 05:51 | NUR ---
SHIFT SUMMARY ASSUMED CARE OF PT AT 1900. PT IS MORE ALERT AND BUT ORIENTATION IS DIFFICULT TO UNDERSTAND DUE TO DIFFICULTY SPEEKING. PT ORAL CAVITY IS LOOKING BETTER THAN THE PAST COUPLE DAYS. PT SPEECH IS BECOMING MORE CLEAR. PT ABLE TO SAY LONGER SENTENCES. PT STILL VERY TEARFUL WHEN TOLD HE CANT HAVE WATER. PT CRIED AND SAID THAT HE WAS GOING TO . PT PULLED OUT DOBHOOF THIS SHIFT. XRAY CONFIRMED NEW PLACEMENT AND TUBE FEEDING RESUMED AFTER 1 HOUR. PT STILL PULLS ON TELE AND CATHETER BUT CAN BE REDIRECTED. PT TURNED Q2.
--- NOTE | 2022-05-16 19:06 | NUR ---
SHIFT SUMMARY PT ORIENTED TO SELF, SITUATION, AND FAMILY BUT UNABLE TO GIVE DATE. PT SEEMED MORE FATIGUED AT BEGINNING OF SHIFT AND HAD DIFFICULTY ANSWERING QUESTIONS. PT BECAME MORE ALERT AND COMMUNICATION IMPROVED THROUGHOUT THE DAY. PT HR FROM 90-110 IN AFIB. PT DENIED ANY CP OR SOB. PT BP SOFT, BUT MAP REMAINED ABOVE 65. DR HINDS WAS CONTACTED REGARDING THIS AND WAS GIVEN A 250ML BOLUS OF LR. PT HAS ECCHYMOSES THROUGHOUT EXTREMITIES AND SKIN TEARS. SKIN TEARS ALL BANDAGED. PT ALSO HAS WOUNDS ON EACH BUTTOCK AND COCCYX. MEPILEX IN PLACE ON ALL 3. PT DOBHOFF STILL INFUSING AT 54ML/HR WITH 320ML FLUSH Q4H. PT HAD THICK DARK BROWN SECRETIONS PRESENT IN MOUTH AND THROAT. PT WAS SUCTIONED BY THIS RN T/O SHIFT. ORAL CARE PERFORMED Q2-3H. RT DEEP SUCTIONED PT TOWARD END OF SHIFT AND WAS ABLE TO GET COPIUS AMOUNT OF THICK BROWN SECRETIONS. PT COUGHING SEEMED TO IMPROVE AFTER. FLUTTER VALVE AND INCENTIVE SPIROMETER PROVIDED BY RT. PT IN CHAIR FOR MAJORITY OF SHIFT AND TOLERATED WELL. PT MEPILEX DRESSING ON BUTTOCKS REPLACED TODAY. WOUNDS SEEM TO BE IMPROVING. PT FREQUENTLY REQUESTING WATER AND REMINDED THAT HE IS NPO. FAMILY WAS AT BEDSIDE AND HELPED REMIND PT OF THIS. PT PLEASANT AND COOPERATIVE WITH CARE. REPORT GIVEN TO CHIEF MEDICAL OFFICER RN.
--- NOTE | 2022-05-17 04:35 | NUR ---
SHIFT SUMMARY: PT ALERT TO SELF AND FAMILY. FORGETFUL. BP SOFT MAP >65 , HR AFIB 100'S, AFEBRILE, SATURATIONS >95% ON ROOM AIR. 1/2 NS INFUSING IN L FOREARM. DOBHOFF IN PLACE INFUSING 54 ML/HR WITH 320 FLUSH Q4. PT REMAINS NPO, Q4 ORAL CARE DONE. PT TEARFUL THROUGHOUT THE NIGHT REGARDING CARE, DOES NOT UNDERSTAND WHY NPO IS NECESSARY. EDUCATION PROVIDED. CONTINUES TO PULL AT LINES, HOWEVER IS REDIRECTABLE, CAMERA ON. PT WITH MUTIPLE BRUISES AND SKIN TEARS THROUGHOUT, SEE PICS IN CHART. MEPILEX PLACED ON COCCYX AND BACK. NO BM THIS SHIFT, BOWEL CARE PROVIDED, BESS CATH IN PLACE DRAINING YELLOW URINE TO GRAVITY. REPOS Q2. BED IN LOW, CALL LIGHT IN REACH, WILL REPORT TO ONCOMING RN.
[2022-05-17 05:11] LABS: Hematocrit 26.5 % (37.0-53.0); Hemoglobin 7.8 g/dL (13.5-17.5); Mean Corpuscular HGB Conc 29.4 g/dL (31.5-36.5); Mean Corpuscular Volume 95 fL (80-100); RDW Coefficient Variation 20.5 % (11.7-14.2); RDW Standard Deviation 70.2 fL (35.1-46.3); Red Blood Cell Count 2.79 M/mm3 (4.30-5.90); White Blood Cell Count 1.76 K/mm3 (4.00-11.30)
[2022-05-17 06:00] LABS: Platelet Count 30 K/mm3 (150-400)
[2022-05-17 06:29] LABS: BAND PERCENT MAN 6 % (0-8); BASOPHILS PERCENT MAN 0 % (0-2); EOSINOPHILS PERCENT MAN 0 % (0-6); LYMPHOCYTES % ATYPICAL MANUAL 1 % (0-0); LYMPHOCYTES ABSOLUTE MAN 0.21 K/mm3 (0.84-5.20); LYMPHOCYTES PERCENT MAN 11 % (21-46); MONOCYTES ABSOLUTE MAN 0.01 K/mm3 (0.16-1.47); MONOCYTES PERCENT MAN 1 % (4-13); NEUTROPHILS ABSOLUTE MAN 1.53 K/mm3 (1.96-9.15); SEG NEUTROPHILS PERCENT MAN 81 % (41-73); TOTAL CELLS COUNTED 100
[2022-05-17 06:32] LABS: Bun/Creatinine Ratio 63.6 (12.0-20.0); Creatinine, Blood 1.1 mg/dL (0.60-1.20); Potassium, Blood 4.4 mmol/L (3.5-5.5)
--- NOTE | 2022-05-17 07:58 | NUR ---
ASSUMPTION OF CARE: NEURO: PATIENT JUST PULLED JUANIS, A/O TO SELF AND PERSON, KEEPS REQUESTING WATER AND TO STAND. PATIENT EXTREME WEAKNESS, CAMERA ON, APPEARS TO NOT WANT FURTHER TREATMENT WHEN DISCUSSING WITH PATIENT. PULLING AT LINES, ORAL CARE PROVIDED AND ORDERED FOR Q4. SPEECH THERAPY EVALUATING TODAY. WILL AWAIT RECOMMENDATIONS. CARDIAC: AFIB 90-100'S WILL CONTINUE TO MONITOR IF NO JUANIS IS REPLACED, AWAITING FAMILY DISCUSSION. DENIES PAIN OF ANY KIND. PULM: RA SPO2>94%. RR20. EXTREMELY WEAK COUGH, CANNOT CLEAR OWN SECRETIONS, RT ORDERS TO DEEP SUCTION. GI/: PATIENT STILL WITH NO BM, BESS DRAINING CLEAR YELLOW. SKIN: ECCYMOTIC BRUISING, MULTIPLE SKIN ISSUES PLEASE SEE CHART. CONCERNS: PATIENT DOES NOT UNDERSTAND SITUATION, VERY CRITCALLY ILL. NOT SURE IF FAMILY UNDERSTANDS THE DEPTH OF SITUATION, PALLIATIVE AND I WILL SPEAK WITH FAMILY, PERSONAL TALK WITH PATIENT SEEMS LIKE HE DOES NOT WANT AN ESCALATION OF ANY FURTHER TREATMENT.
--- NOTE | 2022-05-17 11:39 | NUR ---
I briefly stopped by pt's room yesterday afternoon, pt's and daughter were both present along with pt. They greeted me with smiles, and I commented that pt's jaundice appeared to be improving. At the time, pt had a dobhoff in place. That was my only interaction with pt yesterday. This morning, Dr. Mcghee request follow up with pt and on goals of care. Pt pulled his dobhoff again, and he has made it known he does not wish to continue with tube feeding and NPO. He asks multiple times each hour while awake for water. He has offered money to staff to "sneak" him some water. He also asks, "Please, please I am begging you to let me drink some water". The pt's cognition has greatly improved since admission, and as of this morning, he is able to verbalize that he does not want the dobhoff replaced, and he states he understands there is aspiration risk with eating and/or drinking. I met with family and ST Dana in an impromptu meeting outside pt's room. I gently explained the concern of replacing a dobhoff in someone who doesn't want it. This issue alone is enough to change the course of care. However, when I gently explained to pt's and daughter that we cannot force someone to be fed via dobhoff or any other method, pt's Jazzy stated, "You don't know him, and you don't care what happens to him. You've been discouraging us since day one. Instead of thinking of new ways to help him, you keep talking about giving up on him. It's all about making money with you, and moving people through to free up beds". I suggested we end our conversation here, and told them I would reach out to the pt advocate for them today. I requested pt advocate speak to pt's Jazzy, and I placed an Ethics Consult. I spoke to both departments, and they both state they will follow up with the case. I reported back to Dr. Mcghee as well. Palliative Care will remain available.
--- NOTE | 2022-05-17 14:25 | NUR ---
TRANSFER NOTE PT TRANSFERRED FROM U, REPORT RECEIVED FROM EDIN PAULINO. FAMILY IS AT THE BS, CALL LIGHT PLACED WIHIN REACH. BED IN THE LOWEST POSITION.
--- NOTE | 2022-05-17 15:22 | NUR ---
Ethics consult order processed. Medical history, social matrix, and case notes reviewed. It is reported that in moments of lucidity the principal is declining oxygen support and artificially administered nutrition / hydration. It is documented that this lack of receptivity to care has been evidenced both verbally and by corresponding action e.g forcible tube removal and mask refusal. If the principals capacity is not in question i.e. he has demonstrated a clear understanding of the risks associated with forgoing treatment, can effectively process information, and therefore can reasonably engage in medical decision making, then we would be obliged to respect his autonomy and yield to his indicated treatment preferences. Imposing unwanted therapy on a patient deemed cognitively intact would constitute a civil privilege violation, and a fundamental breach of dignity. If the principals mentation is thought to be compromised, then the family may consent to emergency and clinically reasonable measures of stabalizing care. Thank you for this consult. Edgardo Tong, PhD, VASHTI
--- NOTE | 2022-05-17 18:07 | NUR ---
SHIFT SUMMARY PT IS AOX2-3, ON BEDREST. PT HAS HAD MULTIPLE FAMILY MEMBERS AT THE BS SINCE THE TRANSFER FROM PCU. HE HAS HAD NO C/O P/N/V/D. WE ATTEMPTED TO PUT HIM ON THE BED CHANG BUT HE DID NOT HAVE A BM. HE IS CURRENTLY GETTING TUBE FEEDING, ORDERS ARE IN THE CHART. HE IS ALSO RECEIVING D5, WHICH IS CURRENTLY INFUSING. PT IS ON CAMERA. PT IS ALSO STRICT NPO, WITH NO FOOD OR LIQUIDS BY MOUTH. BESS IS IN PLACE AND DRAINING PROPERLY. PG CAN DRAW. WILL REPORT TO ONCOMING NURSE.
--- NOTE | 2022-05-17 22:38 | NUR ---
ABOUT 2039, CALLED HOSPITALIST TO NOTIFY OF TACHYCARDIC, TACHYPNEIC, AND HYPOTENSIVE STATE OF PATIENT WITH VEWS SCORE OF 7. DR. LAGUERRE INSTRUCTED TO MONITOR PATIENT AND CALL BACK IF SYMPTOMS PRESENT OR IF VITALS METRICS WORSEN.
--- NOTE | 2022-05-18 02:02 | NUR ---
THIS RN COVERING CARE WHILE PRIMARY RN AT LUNCH. FLUIDS COMPLETED. WHEN CHECKING ON PATIENT, PT NOTED TO BE VERY TACHYPNIC WITH ACCESSORY MUSCLE USE. SPOT CHECKED SPO2 OF 74% ON ROOM AIR. CALLED RT AND PT PLACED ON CPAP MACHINE WITH 4L/min BLEED-IN. SPO2 INCREASED TO 95%.
--- NOTE | 2022-05-18 02:31 | NUR ---
CPAP REMOVED PER PATIENT REQUEST AT 0215. OXYGEN SATURATION WAS >92% WITH CPAP. NC IN PLACE AT 5 L O2/MINUTE. O2 SATURATION <79% WITH NC BUT PATIENT REFUSES CPAP.
--- NOTE | 2022-05-18 04:08 | NUR ---
EARLIER IN MORNING AND LATE LAST EVENING PATIENT WAS CONSISTENTLY SHOWING O2 SATURATION OF 92% ON ROOM AIR. AROUND 0130, PATIENT STARTED TO DESATURATE DOWN LOW 74% SATURATION. 2 L O2 VIA NC PUT IN PLACE BEFORE CPAP WAS PUT ON BY RT. PATIENT WAS SATURATING HIGH 95% WITH CPAP W 4 LITER BLEED IN. PATIENT THEN REQUESTED CPAP TO BE TAKEN OFF AND REFUSED TO PUT IT BACK ON. PATIENT CONTINUED TO INTERMITTENTLY DESATURATE INTO THE 70S EVEN AFTER HIGH FLOW O2 @ 10 L/MIN WAS PUT IN PLACE. HOSPITALIST NOTIFIED WHO ORDERED SOFT WRIST RESTRAINTS WITH BIPAP ALONG WITH NECESSARY TRANSFER TO ICU TO FACILITATE HIGHER LEVEL OF CARE.
--- NOTE | 2022-05-18 05:38 | NUR ---
TRANSFER NOTE: AIRVO PUT IN PLACE UNABLE TO RAISE PATIENT O2 SATURATION. PER RT RECOMMENDATION, PATIENT SHOULD HAVE BIPAP IN PLACE. TRANSFERRED TO ICU PER DR. TOMAS' ORDER TO ACCOMODATE BIPAP FOR WORSENING CONDITION.
--- NOTE | 2022-05-18 06:02 | NUR ---
PT CAME TO ICU AT 0530. NEURO/MUSKULOSKELETAL: ALERT AND ORIENTED TO SELF. CONFUSED. INTERMITTENTLY FOLLOWS COMMANDS. GENERALIZED WEAKNESS. LIMBS CANNOT OVERCOME RESISTANCE. GROSS SENSATION INTACT. WILL WITHDRAW LIMBS TO NOXIOUS STIMULI. ATTEMPTING TO PULL OFF BIPAP. BILATERAL SOFT WRIST RESTRAINTS PRESENT. CARDIAC: AFIB. HR 80s-90s. BP SOFT. 90s/60s. MAPS >65. RADIAL AND PEDAL PULSES FAINT. CAP REFILL >3 SECONDS. RESPIRATORY: TACHYPNEIC. RATE IN 30s. BREATH SOUNDS CLEAR THROUGHOUT. BIPAP 14/8 35% FiO2. GI/: HYPERACTIVE BOWEL SOUNDS. ATTENDS IN PLACE. BESS CATHETER NOTED. PUTTING OUT ADEQUATE AMOUNTS OF MARICHUY URINE. INTEGUMENTARY: PALE. COOL. FRAGILE. POOR TURGOR. DIFFUSE PETECHIAE. RIGHT ARM ABRASION. WOUND DRESSED. LEFT ARM ABRASION. WOUND DRESSED. MULTIPLE SKIN TEARS TO COCCYX AND BUTTOCKS. MEPILEX IN PLACE. PT FLOATED.
[2022-05-18 07:28] LABS: BASOPHILS PERCENT AUTO 0 % (0-2); EOSINOPHILS PERCENT AUTO 0 % (0-6); Hematocrit 21.5 % (37.0-53.0); Hemoglobin 6.4 g/dL (13.5-17.5); IMMATURE GRAN ABSOLUTE AUTO 0.01 K/mm3 (0.00-0.10); IMMATURE GRAN PERCENT AUTO 1 % (0-1); LYMPHOCYTES ABSOLUTE AUTO 0.22 K/mm3 (0.84-5.20); LYMPHOCYTES PERCENT AUTO 14 % (21-46); MONOCYTES ABSOLUTE AUTO 0.08 K/mm3 (0.16-1.47); MONOCYTES PERCENT AUTO 5 % (4-13); Mean Corpuscular HGB 28.1 pg (26.0-34.0); Mean Corpuscular HGB Conc 29.8 g/dL (31.5-36.5); Mean Corpuscular Volume 94 fL (80-100); NEUTROPHILS ABSOLUTE AUTO 1.27 K/mm3 (1.96-9.15); NEUTROPHILS PERCENT AUTO 80 % (41-73); RDW Coefficient Variation 20.4 % (11.7-14.2); RDW Standard Deviation 69.7 fL (35.1-46.3); Red Blood Cell Count 2.28 M/mm3 (4.30-5.90); White Blood Cell Count 1.58 K/mm3 (4.00-11.30)
[2022-05-18 07:43] LABS: Platelet Count 18 K/mm3 (150-400)
[2022-05-18 07:47] LABS: Calcium, Blood 7.5 mg/dL (8.5-10.1); Creatinine, Blood 1.13 mg/dL (0.60-1.20); Potassium, Blood 4.5 mmol/L (3.5-5.5)
--- NOTE | 2022-05-18 10:29 | NUR ---
SHIFT ASSESSMENT ASSUMED CARE OF PT @ 0700. AT THAT TIME, PT ON BIPAP /8 @ 35% c SATS >95%. PT ALSO HYPOTENSIVE, THOUGH HE HAS BEEN LOW FOR THE PAST WEEK. INITIALLY PLANNING ON CONTINUING PTS INTENSIVE CARE, HENCE PICC ESTABLISHED BY CHARGE NURSE FOR PRESSORS AND BLOOD ADMINISTRATION. SHORTLY AFTER ESTABLISHING PICC, PTS FAMILY ARRIVED WELL PHYSICIANS. AFTER DETAILED DISCUSSION WITH FAMILY, PALLIATIVE CARE, AND DR ANTONY TEAM, DECISION TO TRANSITION TO COMFORT CARE MADE. FAMILY REMAINS AT BEDSIDE. PT IS ALERT TO PERSON, INTERMITTENTLY ABLE TO SPEAK IN 1-2 WORD SENT. ON 3-6LPM O2 VIA NC c SAST >88%. LAST SBP IN THE 70'S. DOBHOFF IN PLACE, WILL REMOVE. BESS CATH DRAINING MARICHUY URINE. PT HAS MULTIPLE WOUNDS, SEE CHART FOR PICS. WILL CONTINUE TO MONITOR ANNABEL.
--- NOTE | 2022-05-18 10:58 | NUR ---
Met with Pt, Pt's daughter Shonna, and Pt's spouse Jazzy per Shonna's request. Offered therapeutic listening as family reports coming to an understanding that Pt's condition is significantly declining. Family reports time to consider hospice and comfort care. Continued therapeutic listening and answered questions. Dr Marie in to review plan of care and discusses prognosis. Family in agreement with implementing comfort care. Discussed hospice to consider if Pt stabalizes. Family will consider hospice agency choices. Palliative Care will F/U with family and Pt later today with supportive visit.
--- NOTE | 2022-05-18 13:06 | NUR ---
Spiritual Care Visit. - comfort care Pt. is somnilent but responds to my visit. Spouse and family members are present. Pt. has been moved to comfort care this morning, but is alert enough to greet this hr operations advisor with a handshake, but displays evidence of exhaustion. After some brief introductions, prayed with with Pt. and family. Family verbalized gratitude for the spiritual care visit. will remain available to family.
--- NOTE | 2022-05-18 15:46 | NUR ---
REPORT GIVEN TO RAYNA JESUS ON MEDICAL FLOOR. PT TAKEN TO MED FLOOR ROOM 313 VIA BED, FAMILY AND FRIENDS AT BEDSIDE WITH NURSE FOR TRANSPORT.
--- NOTE | 2022-05-18 20:05 | NUR ---
SHIFT SUMMARY 1615 RECEIVED PT TO RM 313 FROM ICU 16. PER REPORT FROM EMERITA RN, PT MADE C/C THIS AM. MANY FAMILY TO WITH PT. SLIDE TX TO BED. PT AWAKE OFF AND ON, BECOMING AGITATED WHEN AWAKE. PT MEDICATED FOR PAIN AND AGITATION PER FAMILY REQUEST. PT LATER CALMED AND RESTED QUIETLY FOR A WHILE. PER REPORT, FAMILY UNDECIDED ON HOSPICE SERVICES; RADHA JESUS, FROM PALLIATIVE CARE TALKED WITH FAMILY PRIOR TO COMING TO UNIT. BESS CATH IN PLACE; MINIMAL OUTPT. PER REPORT, PT INCONTINENT OF BOWEL AND BLADDER. REPORT GIVEN TO ONCOMING RN.
--- NOTE | 2022-05-19 13:36 | NUR ---
CARE CONF WITH RN, MEDICATING PT EVERY HOUR WITH ROXINOL AND PT APPEARS TO BE COMFORTABLE. FAMILY IS CALM AND APPROP GRIEVING AND SUPPORTING ONE ANOTHER. PT IS LAYING SUPINE IN ROOM, UNRESPONSIVE, MOUTH BRATHING, WITH INTERMITTENT SHALLOW RESPIRATIONS. PT APPEARS TO BE COMFORTABLE. SEVERAL FAMILY MEMBERS ARE AT THE BEDSIDE AND SUPPORTING ONE ANOTHER. PT IS STRUGGLING WITH THE PROCESS AND CURRENT SITUATION. SHE IS STRUGGLING THAT SHE MADE THE RIGHT CHOICE AND BECOMES TEARFUL. OFFERED SUPPORT AND THERAPEUTIC LISTENING AND OFFERED REASSURANCE TO THE FAMILY. REINFORCED TO THAT THIS IS A VERY HARD SITUATION TO BE IN AND HOW FORTUNATE HER IS TO HAVE SO MANY PEOPLE AROUND HIM THAT LOVE AND SUPPORT HIM. THIS SEEMED TO LIGHTEN PTS MOOD, SHE GAVE ME A HUG AND STARTED TO SMILE. FAMILY THEN TARTED TO TALK ABOUT POSITIVE MEMORIES. I EXITED THE ROOM AND ADVISED I WILL COME BACK AGAIN IN A FEW HOURS TO CHECK ON THEM. PALLIATIVE CARE WILL CONTINUE TO FOLLOW AND OFFER SUPPORT.
--- NOTE | 2022-05-19 13:37 | NUR ---
"Spiritual Care Visit | Comfort Care Pt. is Comfort Care. Spouse and Pts. daughter are present and welcome my visit. Daughter displays evidence of frustrated grief. Listen with empathy and a calming presence. Offer suggestions to comfort the family. Pt. and daughter display evidence of exhuastion. Nurse Vibha arrives and also offers addtional sympathetic comfort. Prayed a blessing over the Pt. Soon after Pts. son-in-law arrived. Re-establish rapport with the family. Family verbalized that their choice would be [facility]. Educated spouse on EOL logisitics. Spouse verbalized gratitude for the spiritual care visit and support."
--- NOTE | 2022-05-19 14:45 | NUR ---
SPOKE TO BEDSIDE RN, NO CHANGES, PT CONTINUES TO BE COMFORTABLE AND FAMILY REMAIN AT THE BEDSIDE. NO NEEDS OR CONCERNS AT THIS TIME.
--- NOTE | 2022-05-19 16:30 | NUR ---
SHIFT SUMMARY MR CRUZ IS AT END STAGE OF LIFE. ON COMFORT CARE WITH FAMILY AT BEDSIDE. GIVEN SUPPORT THROUGH ACTIVE LISTENING TO THEIR STORIES ABOUT RADHA. PALLIATIVE CARE, RUFUS AND THERAPY DOG ALL GAVE SUPPORT. REGULAR ATROPINE AND ROXINOL GIVEN SUBLINGUALLY. MR CRUZ DOES NOT LOOK TO BE IN DISTRESS OR PAIN, DOES HAVE SECRETIONS THAT ATROPINE AND SCOPOLOMINE HAS HELPED TO IMPROVE PER FAMILY. INCREASING OVERALL EDEMA. BESS WITH MINIMAL UOP. LEAKING AROUND PICC RUE, BUT FLUSHES AND SITE LEFT UNDISTURBED PER FAMILY PREFERENCE.
--- NOTE | 2022-05-19 17:25 | NUR ---
RN NOTE MR CRUZ HAS NO RESPIRATIONS, NO HEARTBEAT WITH STETHOSCOPE OVER 1 MINUTE. PUPILS DILATED AND NOT REACTIONARY TO LIGHT. TIME OF 1658. VERIFIED BY HELENA GOLDSMITH RN. FAMILY AT BEDSIDE. DR AKBAR INFORMED, HE IS NOT IN THE FACILITY TO PRONOUNCE .
== END 2022-05-19 16:59 ==
LOC: ER 18:39 → ICUW 18:40 → PCU 18:40 → ICUE 18:40 → ICUW 22:59 → ICUE 23:40 → ICUW 23:41 → ICUE 05-13 17:37 → PCU 05-14 17:52 → ICUE 05-14 17:52 → PCU 05-14 19:20 → MEDS 05-17 14:18 → PCU 05-17 14:18 → ICUW 05-18 05:21 → MEDS 05-18 05:21 → ICUW 05-18 05:21 → MEDS 05-18 13:33 → ICUW 05-18 13:38 → MEDS 05-18 13:38 → ICUW 05-18 15:27 → MEDS 05-18 15:48 → ICUW 05-18 15:48 → MEDS 05-19 16:59 → ICUW 05-19 16:59
PROVIDERS: Emergency Medicine; Family Medicine; Nurse Practitioner Acute Care; Student in an Organized Health Care Education/Training Program; ADMIT Family Medicine
PROC: 3E03329 Introduction of Other Anti-infective into Peripheral Vein, Percutaneous Approach (ICD-10-PCS; 2022-05-09)
PROC: 0T9B70Z Drainage of Bladder with Drainage Device, Via Natural or Artificial Opening (ICD-10-PCS; 2022-05-10)
PROC: 0DH67UZ Insertion of Feeding Device into Stomach, Via Natural or Artificial Opening (ICD-10-PCS; principal; 2022-05-11)
PROC: 5A09357 Assistance with Respiratory Ventilation, Less than 24 Consecutive Hours, Continuous Positive Airway Pressure (ICD-10-PCS; 2022-05-14)
PROC: 02HV33Z Insertion of Infusion Device into Superior Vena Cava, Percutaneous Approach (ICD-10-PCS; 2022-05-18)
PROC: 3E033XZ Introduction of Vasopressor into Peripheral Vein, Percutaneous Approach (ICD-10-PCS; 2022-05-18)
DX: I13.0 Hypertensive heart and chronic kidney disease with heart failure and stage 1 through stage 4 chronic kidney disease, or unspecified chronic kidney disease (principal); A40.1 Sepsis due to streptococcus, group B; I21.A1 Myocardial infarction type 2; G92.8 Other toxic encephalopathy; I50.33 Acute on chronic diastolic (congestive) heart failure; J18.9 Pneumonia, unspecified organism; R65.21 Severe sepsis with septic shock; J96.01 Acute respiratory failure with hypoxia; C90.00 Multiple myeloma not having achieved remission; E87.0 Hyperosmolality and hypernatremia; D61.818 Other pancytopenia; C96.9 Malignant neoplasm of lymphoid, hematopoietic and related tissue, unspecified; J81.1 Chronic pulmonary edema; Z51.5 Encounter for palliative care; Z66 Do not resuscitate; I48.91 Unspecified atrial fibrillation; N18.30 Chronic kidney disease, stage 3 unspecified; F44.89 Other dissociative and conversion disorders; E78.5 Hyperlipidemia, unspecified; M10.9 Gout, unspecified; R13.10 Dysphagia, unspecified; E87.6 Hypokalemia; M25.532 Pain in left wrist; K13.79 Other lesions of oral mucosa; D70.9 Neutropenia, unspecified; D63.1 Anemia in chronic kidney disease; E83.52 Hypercalcemia; S63.502A Unspecified sprain of left wrist, initial encounter; G47.33 Obstructive sleep apnea (adult) (pediatric); F41.9 Anxiety disorder, unspecified; R29.6 Repeated falls; W19.XXXA Unspecified fall, initial encounter; Z92.21 Personal history of antineoplastic chemotherapy; Z79.899 Other long term (current) drug therapy; Z79.01 Long term (current) use of anticoagulants; Z98.890 Other specified postprocedural states; Z78.1 Physical restraint status
CPT/HCPCS: 31720; 36415; 36569; 70450; 71045; 73100; 74230; 80048; 80053; 80162; 81001; 82550; 82803; 82947; 83605; 83735; 83880; 84100; 84132; 84145; 84295; 84484; 85025; 86850; 86900; 86901; 86922; 87040; 87147; 92526; 92610; 92611; 93005; 93010; 93306; 94660; 94760; 94762; 96365; 96375; 97110; 97163; 97166; 97530; 99285-25; A9270; C1751; J0282; J0456; J0696; J1160; J1200; J1644; J2060; J2270; J2370; J2405; J3370; J3475; J3480; J7030; J7040; J7050; J7060; J7070; J7120; P9047